=== PATIENT | female | born 1980 | race Caucasian/White ===

== ENCOUNTER 2020-05-08 17:36 | Emergency (ER) | payer OTHER, BC, SELFPAY ==
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
[2020-05-08 17:44] VITALS: BP 167/77; PULSE 62; RESP 16; TEMP 36.4; O2SAT 100
[2020-05-08] MEDS: KETOROLAC (*BKC) 60 MG/2 ML VIAL IM (18:55)
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
== END 2020-05-08 19:35 | disposition home or self-care (01) ==
PROVIDERS: Emergency Provider General Practice
DX: S16.1XXA Strain of muscle, fascia and tendon at neck level, initial encounter (principal); S39.012A Strain of muscle, fascia and tendon of lower back, initial encounter; V49.40XA Driver injured in collision with unspecified motor vehicles in traffic accident, initial encounter
CPT/HCPCS: 72125; 96372; 99284; J1885

== ENCOUNTER 2025-05-11 14:06 | Emergency (ER) | payer BC, SELFPAY ==
--- NOTE | ~2025-05-11 | XR_ITS ---
EXAMINATION: XR ankle LT min 3V DATE: 05/11/2025 16:28 INDICATION: Left ankle injury TECHNIQUE: Anteroposterior, mortise and lateral views of the left ankle were obtained. COMPARISON: None. FINDINGS: Minimal distraction of a small avulsion fracture fragment at the distal tip of the lateral malleolus with moderate overlying soft tissue swelling. No other fractures identified. Alignment is otherwise normal. Joint spaces are normal.. Small Achilles calcaneal spur. No evident ankle joint effusion. IMPRESSION: 1. Minimal distraction of a small avulsion fracture fragment at the distal tip at the lateral malleolus. Reviewed, dictated and finalized at location A.
[2025-05-11 14:09] VITALS: BP 145/93; PULSE 89; RESP 18; TEMP 36.9; O2SAT 98
--- OUTSIDE RECORDS SUMMARY | 2025-05-11 14:09 | XMS_ITS | Encounter Summary ---
Author Organization [facility] Health Address [address] [facility] [place] [address] Care Team Providers Care Binitrotoluene Operator Name Role Phone Crystal Branham Pascual SECURITY GUARD-CENTRAL OFFICE OPERATOR SUPERVISOR Primary Care Provider Reason for Visit * Reason Onset Date Comments Reschedule Appointment 05/08/2024 Encounter Details Date Type Department Care Team (Late st Contact Info) Description 05/08/2024 Telephone [facility] - PUBLIC HEALTH DIETITIAN [address] [facility] [address] [place] [address] Mali Balderas MD [address] [place] [address] Reschedule Appointment Social History Tobacco Use Types Packs/Day Years Used Date Smoking Tobacco: Former Cigarettes Q uit: 07/10/2022 Smokeless Tobacco: Never Alcohol Use Standard Drinks/Week Comments Yes 0 (1 standard drink = 0.6 oz pur e alcohol) weekends AUDIT-C Answer Date Recorded Q1: How often do you have a drink containing alc ohol? 2-4 times a month 10/16/2022 Q2: How many drinks containi ng alcohol do you have on a typical day when you are drinking? 1 or 2 10/16/2022 Q3: How often do you have si x or more drinks on one occasion? Never 10/16/2022 Comments No Sex and Gender Information Value Date Recorded Sex Assigned at Not on file Legal Sex Female 11:28 AM CDT Gender Identity Not on file Sexual Orientation Not on file documented as of this encounter Functional Status * Is person deaf or have serious hearing difficulty? Answer Date of Assessment Author No 01/17/2024 9:14 AM CDT Tasha Guardado RN * Is person blind or have serious difficulty seeing? Answer Date of Assessment Author No 01/17/2024 9:14 AM CDT Tasha Guardado RN * Does person have serious difficulty walking/climbing stairs? Answer Date of Assessment Author No 01/17/2024 9:14 AM CDT Tasha Guardado RN * Does person have difficulty dressing/bathing? Answer Date of Assessment Author No 01/17/2024 9:14 AM CDT Tasha Guardado RN * Does person have difficulty doing errands alone? Answer Date of Assessment Author No 01/17/2024 9:14 AM CDT Tasha Guardado RN documented as of this encounter Mental Status * Does person have difficulty concentrating/remembering/making decisions? Answer Entry Date Author No 01/17/2024 9:14 AM CDT Tasha Guardado RN documented in this encounter Miscellaneous Notes * Telephone Encounter - Rosario Johnson - 05/08/2024 2:25 PM CDT Pt called stating she needs to change her appts on 05/18. documented in this encounter Plan of Treatment Upcoming Encounters Date Type Department Care Team (Late st Contact Info) Description 05/14/2025 9:30 AM CDT Hospital Encounter [facility] [address] [place] [address] Stefany Mendoza MD [address] [facility] [address] [place] [phone] 05/14/2025 10:00 AM CDT Office Visit [facility] - General Surgery [address] [place] [address] Stefany Mendoza MD [address] [facility] [address] [place] [address] documented as of this encounter Goals Goal Patient Goal Type Associated Problems Recent Progress Patient-Stated? Author Medication Management General On track( 023 10:22 AM CDT) Jagruti Crowe, RN Note: Expected end date: Ongoing Interventions: Take all medications as prescribed Let your doctor know right away about any changes in your medications Make sure to request a refill of your medication at least one week prior to your last dose documented as of this encounter Visit Diagnoses Not on filedocumented in this encounter Care Teams Binitrotoluene Operator Relationship Specialty Start Date End Date Crystal Branham, SECURITY GUARD-CENTRAL OFFICE OPERATOR SUPERVISOR [facility] [place] [address] PCP - General Nurse Practitioner 02/02/24 documented as of this encounter
--- OUTSIDE RECORDS SUMMARY | 2025-05-11 14:09 | XMS_ITS | Encounter Summary ---
Author Organization [facility] Health Address [address] [facility] [address] Care Team Providers Care Gaggerman Name Role Phone Enrique Reyes MD Primary Care Provider [phone] Crystal Branham APRN-SQL DEVELOPER DBA Primary Care Provider Encounter Details Date Type Department Care Team (Late st Contact Info) Description 03/25/2023 Telephone [facility] - Centralized Scheduling [address] [place] [address] Elsa Gardner MD [address] [place] [address] Social History Tobacco Use Types Packs/Day Years Used Date Smoking Tobacco: Former Cigarettes Q uit: 07/10/2022 Smokeless Tobacco: Never Comments:1- 2 cigarettes per day Alcohol Use Standard Drinks/Week Comments Yes 0 [...] difficulty? Answer Date of Assessment Author No 04/10/2022 12:39 PM CDT Domitila Richmond RN * Is person blind or have serious difficulty seeing? Answer Date of Assessment Author No 04/10/2022 12:39 PM CDT Domitila Richmond RN * Does person have serious difficulty walking/climbing stairs? Answer Date of Assessment Author No 04/10/2022 12:39 PM CDT Domitila Richmond RN * Does person have difficulty dressing/bathing? Answer Date of Assessment Author No 04/10/2022 12:39 PM CDT Domitila Richmond RN * Does person have difficulty doing errands alone? Answer Date of Assessment Author No 04/10/2022 12:39 PM CDT Domitila Richmond RN documented as of this encounter Mental Status * Does person have difficulty concentrating/remembering/making decisions? Answer Entry Date Author No 04/10/2022 12:39 PM CDT Domitila Richmond RN documented in this encounter Miscellaneous Notes * Telephone Encounter - Srinivas Santamaria - 03/25/2023 10:45 AM CDT Pt states she sees Shyann when she's scheduled with Dr. Gardner. Pt was bumped from 03/31/2023. Pt would like a call from the office to reschedule to see if she can be scheduled with Shyann instead. Please contact pt for the reschedule documented in this encounter Plan of Treatment Upcoming Encounters Date Type Department Care Team (Late st Contact Info) Description 05/14/2025 9:30 AM CDT Hospital Encounter [facility] [address] [place] [address] Stefany Mendoza MD [address] [facility] [address] [place] [address] 05/14/2025 10:00 AM CDT Office Visit [facility] - General Surgery [address] [place] [phone] Stefany Mendoza MD [address] [facility] [address] [place] [address] documented as of this encounter Visit Diagnoses Not on filedocumented in this encounter Care Teams Gaggerman Relationship Specialty Start Date End Date Enrique Reyes MD [address] [place] [address] [address] [place] [id number] PCP - General 10/15/22 07/20/23 Crystal Branham, PUMP HOUSE ENGINEER-SQL DEVELOPER DBA [address] [place] [address] PCP - General Nurse Practitioner 02/02/24 documented as of this encounter
--- OUTSIDE RECORDS SUMMARY | 2025-05-11 14:09 | XMS_ITS | Encounter Summary ---
Author Organization [facility] Address [address] [place] [address] Phone Care Team Providers Care Tool Die Maker Name Role Phone Crystal Branham APRN, CNP Primary Care Provider + Jose Manuel Hannon MD Unavailable Encounter Details Date Type Department Care Team (Late st Contact Info) Description 08/21/2022 Telephone [facility] [address] [address] Jose Manuel Hannon MD [facility] [address] [address] Social History Tobacco Use Types Packs/Day Years Used Date Smoking Tobacco: Every Day Cigarettes Smokeless Tobacco: Never Alcohol Use Standard Drinks/Week Comments Yes 6 (1 standard drink = 0.6 oz pur e alcohol) PHQ-2 Answer Date Recorded Total Score - Questions 1-9 0 09/0 04/2022 Comments Unknown Sex and Gender Information Value Date Recorded Sex Assigned at Not on file Legal Sex Female 1:21 PM CDT Gender Identity Not on file Sexual Orientation Not on file COVID-19 Exposure Response Date Recorded In the last 10 days, have yo u been in contact with someone who was confirmed or suspected to have Coronavirus/COVID-19? No / Unsure 08/21/2022 11:27 AM CRUSHER FEEDER documented as of this encounter Miscellaneous Notes * Telephone Encounter - Jose Manuel Hannon MD - 08/21/2022 2:18 PM CST done HER FEEDER * Telephone Encounter - VianneymilkaalondraErum - 08/21/2022 2:09 PM CST PT STOPPED BY CHECKOUT AND MENTIONED ABOUT A MAMMOGRAM AND ULTRASOUND THAT SHE WANTS TO HAVE DONE AT [facility].. PLEASE PLACE ORDERS AND I WILL FAX OVER TO [facility]. HER FEEDER documented in this encounter Plan of Treatment Upcoming Encounters Date Type Department Care Team (Late st Contact Info) Description 06/14/2025 8:30 AM CRUSHER FEEDER Office Visit [facility] [address] [address] Jose Manuel Hannon MD [address] [facility] [address] [id number] 06/14/2025 8:45 AM CRUSHER FEEDER Clinical Support [facility] [address] [address] Nurse, Cc [facility] documented as of this encounter Visit Diagnoses Not on filedocumented in this encounter Additional Health Concerns Infection Onset Date Last Indicated Resolved Time C. difficile Rule-Out 01/07/2024 01/10/20242023 2:04 PM CDT documented as of this encounter Care Teams Tool Die Maker Relationship Specialty Start Date End Date Crystal Branham, CODE ENFORCEMENT INSPECTOR, SUPERVISOR [employer]ARD [address] [place] [address] PCP - General Family Medicine 03/24/22 Jose Manuel Hannno MD [address] [place] [address] Consulting Physician Oncology 03/24/22 documented as of this encounter
--- OUTSIDE RECORDS SUMMARY | 2025-05-11 14:09 | XMS_ITS | Encounter Summary ---
Author Organization [facility] Health Address [address] [facility] [place] [address] Care Team Providers Care Psychologists Name Role Phone Crystal Branham BRANCH SERVICE REPRESENTATIVE-BUSINESS SERVICES ASSOCIATE Primary Care Provider Reason for Referral * Radiology Services (Routine) - Authorized Specialty Diagnoses / Procedures Referred By Arlin t Referred To Contact Mammography Diagnoses Malignant neoplasm of upper-outer quadrant of left breast in female, estrogen receptor positive (HCC) Mass of left chest wall Procedures US BREAST LEFT LTD (Diagnostic , most commonly ordered) Stefany Mendoza MD [address] [facility] [address] [place] [address] Phone: tel: fax: [facility] [address] [place] [address] Phone: tel: fax: Referral ID Status Reason Start Date Expiration Date V isits Requested Visits Authorized [id number] Authorized 05/10/2025 05/10/2026 1 1 Encounter Details Date Type Department Care Team (Late st Contact Info) Description 05/10/2025 Orders Only [facility] - General Surgery [address] [place] [phone] Jessica Colbert RN Malignant neoplasm of upper-outer quadrant of left breast in female, estrogen receptor positive (HCC) ; Mass of left chest wall Social History Tobacco Use Types Packs/Day Years Used Date Smoking Tobacco: Former Cigarettes Q uit: 07/10/2022 Smokeless Tobacco: Never Alcohol Use Standard Drinks/Week Comments Yes 0 (1 standard drink = 0.6 oz pur e alcohol) occassionaly AUDIT-C Answer Date Recorded Q1: How often do you have a drink containing alc ohol? 2-4 times a month 10/16/2022 Q2: How many drinks containi ng alcohol do you have on a typical day when you are drinking? 1 or 2 10/16/2022 Q3: How often do you have si x or more drinks on one occasion? Never 10/16/2022 PHQ-2 Answer Date Recorded Patient Health Questionnaire-2 Score 0 08/24/2024 Comments No Sex and Gender Information Value Date Recorded Sex Assigned at Not on file Legal Sex Female 11:28 AM CDT Gender Identity Not on file Sexual Orientation Not on file documented as of this encounter Functional Status * Is person deaf or have serious hearing difficulty? Answer Date of Assessment Author No 11/29/2024 1:32 PM URIT Adelaide Alex RN * Is person blind or have serious difficulty seeing? Answer Date of Assessment Author No 11/29/2024 1:32 PM URIT Adelaide Alex RN * Does person have serious difficulty walking/climbing stairs? Answer Date of Assessment Author No 11/29/2024 1:32 PM URIT Adelaide Alex RN * Does person have difficulty dressing/bathing? Answer Date of Assessment Author No 11/29/2024 1:32 PM Adelaide Chadwick RN * Does person have difficulty doing errands alone? Answer Date of Assessment Author No 11/29/2024 1:32 PM Adelaide Chadwick RN documented as of this encounter Mental Status * Does person have difficulty concentrating/remembering/making decisions? Answer Entry Date Author No 11/29/2024 1:32 PM CDT Adelaide Alex, GERA documented in this encounter Plan of Treatment Upcoming Encounters Date Type Department Care Team (Late st Contact Info) Description 05/14/2025 9:30 AM CDT Hospital Encounter [facility] [address] [place] [address] Stefany Mendoza MD [address] [facility] [address] [place] [phone] 05/14/2025 10:00 AM CDT Office Visit [facility] - General Surgery [address] [place] [phone] Stefany Mendoza MD [address] [facility] [address] [place] [address] Scheduled Orders Name Type Priority Associated Diagnoses Orde r Schedule US BREAST LEFT LTD (Diagnostic , most commonly ordered) Imaging Routine Malignant neoplasm of upper-outer quadrant of left breast in female, estrogen receptor positive (HCC) Mass of left chest wall 1 Occurrences starting 05/10/2025 until 05/10/2026 documented as of this encounter Goals Goal Patient Goal Type Associated Problems Recent Progress Patient-Stated? Author Medication Management General On track( 023 10:22 AM CDT) Jagruti Crowe RN Note: Expected end date: Ongoing Interventions: Take all medications as prescribed Let your doctor know right away about any changes in your medications Make sure to request a refill of your medication at least one week prior to your last dose documented as of this encounter Visit Diagnoses Diagnosis Malignant neoplasm of upper-outer quadrant of left breast in female, estrogen receptor positive (HCC)- Primary Mass of left chest wall documented in this encounter Care Teams Psychologists Relationship Specialty Start Date End Date Crystal Branham, BALA-BUSINESS SERVICES ASSOCIATE [address] [place] [address] PCP - General Nurse Practitioner 02/02/24 documented as of this encounter
--- OUTSIDE RECORDS SUMMARY | 2025-05-11 14:09 | XMS_ITS | Clinical Summary ---
Author Organization [facility] Address [address] [place] [address] Care Team Providers Care Brake Lining Curer Name Role Phone Josie Singh MD Unavailable [phone] Social History Tobacco Use Types Packs/Day Years Used Date Smoking Tobacco: Never Assessed Personal Safety Answer Date Recorded Getting School Help Needed Not on file 10/23 Comments Unknown Sex and Gender Information Value Date Recorded Sex Assigned at Not on file Legal Sex Female 8:50 AM CDT Gender Identity Not on file Sexual Orientation Not on file Plan of Treatment Not on file Care Teams Brake Lining Curer Relationship Specialty Start Date End Date Josie Singh MD Obstetrics and Gynecology 02/24/22
--- OUTSIDE RECORDS SUMMARY | 2025-05-11 14:09 | XMS_ITS | Clinical Summary ---
Author Organization [facility] Wallstr Address [address] [place] [address] Care Team Providers Care Prescription Clerk Lenses Name Role Phone Crystal Branham HAND BUFFING WHEEL FORMER-DRUM STENCILER Primary Care Provider Source Comments [facility],non-owned Affiliates and Associated Physician Practices is amultiple site organization consisting of ambulatory clinics and hospital sitesin [place], [place], [place] and [place]. This disclosure is being madepursuant to the Care Everywhere program and may not contain all information available regarding this patient. Last updated 18.[facility] Wallstr Allergies Active Allergy Reactions Criticality Noted Date Comments Chlorhexidine Rash,Itching Medium 04/12/2022 Chlora Prep Naproxen Other Low 07/06/2018 I prefer not to take it, I get severe heartburn Povidone Iodine Rash Medium 03/16/2022 Medications * Be aware that medications may not be up to date on this document. Alwaysverify current medications with the patient. Cyanocobalamin (B-12 Compliance Injection) 1000 MCG/ML Inject 1,000 mcg subcutaneously every 30 days 12/17/19 24 Active anastrozole (Arimidex) 1 MG tablet Take 1 (one) tablet by mouth once daily 11/29/19 24 Active lisinopril (Prinivil; Zestril) 20 MG tablet Take 1 (one) tablet by mouth once daily 07/25/20 24 Active polyethylene glycol (Golytely) solution Drink half of prep solution at 5pm the night before colonoscopy. Finish the prep at 4am the day of test. 4000 mL 11/17/19 25 Active losartan (Cozaar) 50 MG tablet Take 1 (one) tablet by mouth once daily 09/07/19 25 Active venlafaxine XR 24hr (Effexor XR) 37.5 MG capsule Take 1 (one) capsule by mouth once daily 04/27/20 24 Active pantoprazole EC (Protonix) 40 MG tabletIndicati ons:Heartburn, Esophagitis Take 1 (one) tablet by mouth 2 times daily 180 tablet 3 05/04/20 25 026 Active pantoprazole EC (Protonix) 40 MG tabletIndicati ons:Heartburn Take 1 (one) tablet by mouth 2 times daily 180 tablet 3 03/08/20 24 025 Discontin ued(Reord er) Active Problems Problem Noted Date Diagnosed Date Colon polyps 10/07/2023 Dysphagia 05/26/2023 Monoallelic mutation of CHEK2 gene in female pat ient 05/26/2023 Vitamin D deficiency 12/14/2022 02/11/2023 Anxiety 04/07/2022 Primary hypertension 04/07/2022 Primary insomnia 04/07/2022 Former smoker 04/07/2022 03/10/2023 Malignant neoplasm of upper- outer quadrant of left breast in female, estrogen receptor positive 03/19/2022 Cancer Staging:Clinical stage from 03/16/2022:Stage IIA(cT2, cN1(f), cM0, G2, ER+, OK+, HER2: Equivocal) - Signed by Stefany Mendoza MD on 03/19/2022 Pathologic stage from 10/16/2022:No Stage Recommended(ypT2, pN2a, cM0, G2, ER+, OK+, HER2-) - Signed by Stefany Mendoza MD on 11/11/2022 Encounters Date Type Department Care Team Description 05/10/2025 Orders Only [facility] - General Surgery [address] [place] [address] Jessica Colbert, RN Malignant neoplasm of upper-outer quadrant of left breast in female, estrogen receptor positive (HCC) ; Mass of left chest wall 05/04/2025 Refill [facility] - [address], [place] [address] Ngoc Orr, LAW RESEARCHER REFILL from Last 3 Months Family History Medical History Relation Name Comments Cancer - Stomach Maternal Grandmother heber rine Cancer - Stomach Maternal Great-Grandmother Cancer - Stomach Maternal Uncle Relation Name Status Comments Maternal Grandmother Maternal Great-Grandmother Alive Maternal Uncle Alive Social History Tobacco Use Types Packs/Day Years Used Date Smoking Tobacco: Former Cigarettes Q uit: 07/10/2022 Smokeless Tobacco: Never Tobacco Cessation:Counseling Given: No Alcohol Use Standard Drinks/Week Comments Yes 0 [...] on file Sexual Orientation Not on file Last Filed Vital Signs Vital Sign Reading Time Taken Comments Blood Pressure 181/104 11/29/2024 1:45 PM CDT Pulse 60 11/29/2024 1:45 PM CDT Temperature 36.1 C (97 F) 11/29/2024 1:14 PM CDT Respiratory Rate 19 11/29/2024 1:45 PM CDT Oxygen Saturation 100% 11/29/2024 1:45 PM CDT Inhaled Oxygen Concentration 21% 10:45 AM CDT Weight 95.6 kg (210 lb 12.8 oz) 025 11:20 AM CDT Height 172.7 cm (5' 8) 11/29/2024 11:2 0 AM CDT Body Mass Index 32.05 11/29/2024 11:20 AM CDT Plan of Treatment Upcoming Encounters Date Type Department Care Team (Late st Contact Info) Description 05/14/2025 9:30 AM CDT Hospital Encounter [facility] [address] [place] [address] Stefany Mendoza MD [address] [facility] [facility] [address] [place] [address] 05/14/2025 10:00 AM CDT Office Visit [facility] - General Surgery [address] [place] [id number] Stefany Mendoza MD [address] [facility] [address] [place] [address] Health Maintenance Due Date Last Done Comments COLOGUARD (AGES 45-75) - COLON CA SCREENING 1980 CT COLONOGRAPHY - COLON CA SCREENING 1980 FIT - COLON CA SCREENING 1980 FLEX SIG - COLON CA SCREENING 1978 HIV SCREENING 1993 HEPATITIS C SCREENING 09/27/1996 DTAP/TDAP/TD VACCINES (1 - Tdap) 1997 HEPATITIS B VACCINE (1 of 3 - 19+ 3-dose series) 1997 SCREENING FOR DIABETES 04/01/2025 04/01/2022 COVID-19 VACCINE (2 - 2024- season) 2025 10/14/2020 INFLUENZA VACCINE (#1) 2025 MAMMOGRAM 09/25/2026 09/25/2024, 02/0 03/2023, 03/10/2022, Additional history exists ZOSTER VACCINE (1 of 2) 2028 LIPID TESTING 03/10/2029 03/10/2024, 04/08/2022 PAP with HPV 04/06/2029 04/06/2024, 03/10, 12/14/2022, Additional history exists COLON MONITORING 11/29/2034 11/29/2024, , 10/06/2023, Additional history exists COLONOSCOPY - COLON CA SCREENING 11/29/2034 11/29/2024, 11/29/2024, 10/06/2023, Additional history exists Colorectal Cancer Screening 11/29/2034 DEPRESSION SCREENING Completed 08/24/2024 HIB VACCINE Aged Out No longer eligi ble based on patient's age to complete this topic HPV VACCINE Aged Out No longer eligi ble based on patient's age to complete this topic MENINGOCOCCAL (Group B) VACCINE SHARED DECISION-MAKING Aged Out No longer eligible based on patient's age to complete this topic MENINGOCOCCAL GROUPS A/C/Y/W VACCINE Aged Out No longer eligible based on patient's age to complete this topic PNEUMOCOCCAL VACCINE Aged Out No long er eligible based on patient's age to complete this topic Goals Goal Patient Goal Type Associated Problems [...] one week prior to your last dose Medical Devices Implanted Type Area Train Control Technician Device Identifier Shelf Expiration Date Model / Serial / Lot Port Implinfn Powerport Isp Mri Argd - [id number] Implanted:Qty: 1 on 04/10/2022 by Stefany Mendoza MD at [facility] N/A: Chest Bard Peripheral Vascular 07/08/2022 [id number] / [id number] / [id number] Mtrx Tissue Aldrm Algrf Prfr Implanted:Qty: 1 on 10/16/2022 by Elsa Gardner MD at [facility] Right: Breast Lifecell Kate 05/08/2024 [id number] / / [id number] Mtrx Tissue Aldrm Algrf Prfr Implanted:Qty: 1 on 10/16/2022 by Elsa Gardner MD at [facility] Left: Breast Lif[employer]ell Kate 05/08/2024 [id number] / / [id number] Natrelle 133s Tissue Explander Implanted:Qty: 1 on 10/16/2022 by Elsa Gardner MD at [facility] Right: Breast 03/13/2027 133S-MX-12- T / [id number] / Natrelle 133s Tissue Fire Department Marine Engineer Implanted:Qty: 1 on 10/16/2022 by Elsa Gardner MD at [facility] Left: Breast 06/10/2027 133S-MX-12- T / [id number] / Natrelle Inspira Cohesive Breast Implant Smooth Round Full Profile Implanted:Qty: 1 on 08/20/2023 by Elsa Gardner MD at [facility] Left: Breast [employer] 07/29/[address] [facility]-365 / [id number] / Natrelle Inspira Cohesive Breast Implant Smooth Round Full Profile Implanted:Qty: 1 on 08/20/2023 by Elsa Gardner MD at [facility] Right: Breast 12/06/[address] [facility]-345 / [id number] / Explanted Type Area Train Control Technician Device Identifier Shelf Expiration Date Model / Serial / Lot Kit Fld Trnsf 122cm Natrelle Unv 2w Ck Explanted:Qty: 1 on 08/20/2023 by Elsa Gardner MD at [facility] Breast [employer] [id number] / / Procedures Procedure Name Priority Date/Time Associated Diagnosis Comments ENDOSCOPY, COLON, DIAGNOSTIC Routine 11/29/2024 11:41 AM CDT MAMMO BILAT DIAGNOSTIC W SHASHI Routine 09/25/2024 11:38 AM SENIOR SOFTWARE ARCHITECT S/P breast reconstruction, bilateral History of left breast cancer Malignant neoplasm of upper-outer quadrant of left breast in female, estrogen receptor positive S/P bilateral mastectomy Silicone breast implant in situ HPV DETECTION HIGH RISK TED Routine 04/06/2024 11:42 AM CDT Well woman exam with routine gynecological exam LIPID PROFILE Routine 04/08/2022 3:24 PM CDT Primary hypertension Body mass index (BMI) of 22.0-22.9 in adult COMPREHENSIVE METABOLIC PANEL Routine 04/01/2022 12:22 PM CDT Malignant neoplasm of upper-outer quadrant of left breast in female, estrogen receptor positive from Last 3 Months or Most Recently Relevant to Health Maintenance Results * ENDOSCOPY, COLON, DIAGNOSTIC (11/29/2024 11:41 AM CDT) Report Endoscopy POC Endoscopy Department Report _ Patient Name: Jay Chaudhari Procedure Date: 11/29/2024 11:41 AM Date of : 1980 Classification: Outpatient Gender: Female Ethnicity: Not or Race: White _ Providers: Rikki Pack MD, James Leyva (Fellow) Referring MD: Procedure: Colonoscopy Indications: High risk colon cancer surveillance: Personal history of colonic polyps Medications: Monitored Anesthesia Care Patient Profile: This is a 44 year old female. Description of Procedure: After I obtained informed consent, the scope was passed under direct vision. Throughout the procedure, the patient's blood pressure, pulse, and oxygen saturations were monitored continuously. The Colonoscope was introduced through the anus and advanced to the cecum, identified by appendiceal orifice and ileocecal valve. The colonoscopy was performed without difficulty. The patient tolerated the procedure well. Scope insertion time was 5 minutes. Scope withdrawal time was 21 minutes. The quality of the bowel preparation was evaluated using the BBPS (Callery Bowel Preparation Scale) with scores of: Right Colon = 3 (entire mucosa seen well with no residual staining, small fragments of stool or opaque liquid), Transverse Colon = 3 (entire mucosa seen well with no residual staining, small fragments of stool or opaque liquid) and Left Colon = 3 (entire mucosa seen well with no residual staining, small fragments of stool or opaque liquid). The total BBPS score equals 9. To enhance insepction, Endocuff distal attachment was used. GI-Genius ([employer]) was used to assist in polyp detection. Findings: Skin tags were found on perianal exam. At 35 cm a small post polypectomy scar was found in the sigmoid colon. The scar tissue was healthy in appearance. There was no evidence of the previous polyp. A tattoo was seen in the sigmoid colon just distal to the colinic scar. The tattoo site appeared normal. Non-bleeding internal hemorrhoids were found during retroflexion. The hemorrhoids were mild. The colon (entire examined portion) appeared normal otherwise. Estimated Blood Loss: Estimated blood loss: none. Complications: No immediate complications. Impression: - Perianal skin tags found on perianal exam. - Post-polypectomy scar in the sigmoid colon. Healthy looking with no residual/recurren t polyp tissue noted. - A tattoo was seen in the sigmoid colon, distal to the scar. The tattoo site appeared normal. - Non-bleeding internal hemorrhoids. - The entire examined colon is normal. - No specimens collected. Recommendation: - Patient has a contact number available for emergencies. The signs and symptoms of potential delayed complications were discussed with the patient. Return to normal activities tomorrow. Written discharge instructions were provided to the patient. - High fiber diet. - Resume previous diet. - Repeat colonoscopy in 3 years for surveillance given patient's risk. Attending Participation: I was present and participated during the entire procedure, including non-douglas portions. Procedure Code(s): --- Professional --- G0105, Colorectal cancer screening; colonoscopy on individual at high risk Diagnosis Code(s): --- Professional --- Z86.010, Personal history of colonic polyps K64.8, Other hemorrhoids K64.4, Residual hemorrhoidal skin tags CPT copyright 2021 [employer] [place] [employer]. All rights reserved. The codes documented in this report are preliminary and upon upholstery mechanic review may be revised to meet current compliance requirements. Rikki Pack MD 11/29/2024 1:28:13 PM This report has been signed electronically. Note Initiated On: 11/29/2024 11:41 AM Number of Addenda: 0 [address] [place] [address] [facility] 11/29/2024 11:4 1 AM CDT us Rikki Pack MD GI PROCEDURE ORDERABLES Edited R esult - Final [facility] * Mammo Bilat Diagnostic W Shashi (09/25/2024 11:38 AM SENIOR SOFTWARE ARCHITECT) Anatomical Region Laterality Modality Breast Bilateral Mammography 09/25/2024 10:3 5 AM SENIOR SOFTWARE ARCHITECT Impressions 09/25/2024 12:43 PM SENIOR SOFTWARE ARCHITECT IMPRESSION: 1. No bilateral mammographic or lateral targeted breast sonographic evidence of malignancy, with attention to the areas of clinical concern. 2. Patient's bilateral palpable lumps in the reconstructed breasts represent benign oil cysts/fat necrosis. RECOMMENDATION: Patient will follow back with her plastic surgeon. Dr. Kuo discussed the examination findings and recommendations with the patient at the time of the examination. Patient will also receive the exam results by lay letter. OVERALL ASSESSMENT: BI-RADS CATEGORY 2: BENIGN. > Interpreting Provider: Ashley Kuo MD, FACR on 09/25/2024 12:43 PM Narrative 09/25/2024 12:43 PM SENIOR SOFTWARE ARCHITECT EXAMINATIONS: 1. BILATERAL DIGITAL DIAGNOSTIC MAMMOGRAM AND BREAST TOMOSYNTHESIS AND 2. LIMITED BILATERAL BREAST ULTRASOUND (COMBINED REPORT) LOCATION: [facility] EXAM DATE: 09/25/2024 HISTORY: This is a 43-year-old female, status post bilateral mastectomies and breast reconstruction in 2022 for left-sided breast cancer. On 08/20/2023, patient had removal of bilateral breast tissue expanders and placement of bilateral silicone gel implants. Patient reports bilateral fat injections within the bilateral breasts in March 2024. Patient now feels lumps the medial and the lateral left breast as well as within the medial right breast. Diagnostic workup is performed for further evaluation of this palpable lumps. COMPARISON: Diagnostic mammogram and ultrasound 09/16/2022, prior to bilateral mastectomies. LIMITED BILATERAL BREAST ULTRASOUND: Right side: Targeted ultrasound performed with attention to the 3:00 region were patient feels a lump. Dr. Kuo also scanned the patient. Left side: Targeted ultrasound performed the left breast with attention to the 4:00 and 9:00 regions were patient feels lumps. Dr. Kuo also scanned the patient. FINDINGS: Right side: Breast implant noted. At 3:00, 8 cm from and expected location of the nipple and corresponding with patient's palpable lump, is a 1.1 x 1.0 x 0.6 cm oval circumscribed isoechoic mass with no blood flow. This is directly adjacent to the implant and likely represents fat necrosis. Left side: Breast implant noted. At 4:00, 4 cm from the nipple and corresponding with her palpable lump is a 2.2 x 0.9 x 1.9 cm oval circumscribed minimally hypoechoic mass, directly adjacent to the implant. There is no blood flow. This likely represents fat necrosis. At 9:00, 8 cm from the nipple and corresponding with her palpable lump is a 2.8 x 2.8 x 0.9 cm oval circumscribed hypoechoic mass, directly adjacent to the implant. No blood flow noted to this. This likely represents fat necrosis. Mammogram performed to further evaluation the palpable lumps to see if these represent fat necrosis. MAMMOGRAM: TECHNIQUE: Diagnostic bilateral mammography was performed. Tomosynthesis (3-D) and reconstructed synthetic 2-D images acquired. Bilateral CC and MLO implant displaced views as well as exaggerated left CC views obtained. A total of 7 images were obtained. Transpara AI was utilized in the interpretation of this exam. BREAST COMPOSITION: Category A: The breasts are almost entirely fatty. FINDINGS: Right side: Just deep to the triangular marker were patient feels a lump is a 1.0 cm oval fat density mass, representing benign fat necrosis/oral cysts and corresponding with the mass on ultrasound. This is just superficial to the implant. Left side: Just deep to the triangular marker laterally and corresponding with her palpable lump is a 2.1 cm oval fat density mass, representing benign fat necrosis and corresponding with the mass on ultrasound. This is just superficial to the implant. In the medial breast, just adjacent to the implant and just deep to the triangle are marker is a oval 2.5 cm fat density mass, representing benign fat necrosis. This corresponds with the mass on ultrasound in the 9:00 region. Donna Cardenas PA-C MAMMO ORDERABLES Final Result * (ABNORMAL) HPV DETECTION HIGH RISK TED (04/06/2024 11:42 AM CDT) Pathologist [facility] High Risk Human Papilloma Result Detected( A) Not detected 04/13/2024 7:20 AM CDT [facility] High Risk Human Papilloma Interp 04/13/2024 7:20 AM CDT [facility] Comment:High Risk Human Blair lloma Virus - Detected Pathology/Cytolo gy MISCELLANEOUS SAMPLES / Unknown 04/06/2024 11:42 AM CDT 04/07/2024 12:17 PM CDT Narrative [facility] - 04/13/2024 7:20 AM CDT Nucleic acid isolated from the specimen was analyzed with a nucleic acid amplification test (FDA approved Gen-Probe HPV Assay) to detect high risk human papilloma virus (Types: 16, 18, 31, 33, 35, 39, 45, 51, 52, 56, 58, 59, 66, and 68). The reference range is Not Detected. Comment: These test results should not be used as the sole basis for clinical assessment and treatment of patients. These results should always be correlated with other available data (cytology, histology, and clinical information). us Mali Balderas MD LAB - MICROBIOLOGY O RDERABLES Final Result Performing Organization Address City/State/[facility] Co de Phone Number [facility] [address] [phone] * (ABNORMAL) LIPID PROFILE (04/08/2022 3:24 PM CDT) [facility] Cholesterol Total 198 <200 mg/dL 04/08/2022 4:25 PM CDT [facility] HDL 66 >40 mg/dL 04/08/2022 4:25 PM CDT [facility] Comment: ATP III Classification of HDL Cholesterol: <40 mg/dL: Considered a major risk factor. >60 mg/dL: Considered a negative risk factor. LDL Calculated 107(H) <100 mg/dL 04/08/2022 4:25 PM [facility] Comment: ATP III Classification of LDL Cholesterol: <100 mg/dL: Optimal 100 - 129 mg/dL: Near Optimal/Above Optimal 130 - 159 mg/dL: Borderline High 160 - 189 mg/dL: High >190 mg/dL: Very High Triglycerides 123 <150 mg/dL 04/08/2022 4:25 PM T [facility] Comment: ATP III Classification of Triglycerides: <150 mg/dL: Normal 150 - 199 mg/dL: Borderline High 200 - 400 mg/dL: High >500 mg/dL: Very High Blood BLOOD SPECIMEN / Unknown Lab Venipuncture / Unknown 04/08/2022 3:24 PM CDT 04/08/2022 3:55 PM CDT Crystal Branham HAND BUFFING WHEEL FORMER-DRUM STENCILER LAB - CHEMISTRY ORDERAB LES Final Result [facility] [address] [place] [address], [facility] [phone] * (ABNORMAL) COMPREHENSIVE METABOLIC PANEL (04/01/2022 12:22 PM CDT) BUN 22 7 - 26 mg/dL 04/01/2022 1:56 PM [facility] Creatinine 0.66 0.56 - 0.96 mg/dL 04/01/2022 1:56 PM [facility] Sodium 139 136 - 145 mmol/L 04/01/2022 1:56 PM [facility] Potassium 4.1 3.5 - 4.5 mmol/L 04/01/2022 1:56 PM [facility] Chloride 104 98 - 107 mmol/L 04/01/2022 1:56 PM [facility] CO2 25 22 - 29 mmol/L 04/01/2022 1:56 PM [facility] Glucose 88 70 - 115 mg/dL 04/01/2022 1:56 PM [facility] Calcium 10.1 8.4 - 10.2 mg/dL 04/01/2022 1:56 PM [facility] Protein Total 7.5 6.0 - 8.3 g/dL 04/01/2022 1:56 PM [facility] Albumin 4.6 3.4 - 5.0 g/dL 04/01/2022 1:56 PM [facility] Bilirubin Total 0.8 0.2 - 1.2 mg/dL 04/01/2022 1:56 PM [facility] Alkaline Phosphatase 47 40 - 150 U/L 04/01/2022 1:56 PM [facility] ALT 14 5 - 55 U/L 04/01/2022 1:56 PM [facility] AST 21 5 - 34 U/L 04/01/2022 1:56 PM [facility] Anion Gap 14 8 - 18 04/01/2022 1:56 PM [facility] BUN/Creatinine Ratio 33(H) 7 - 23 04/01/2022 1:56 PM [facility] Osmolality Calculated 291 270 - 300 mOsm/kg 04/01/2022 1:56 PM [facility] Albumin/Globulin Ratio 1.6 1.1 - 2.3 04/01/2022 1:56 PM [facility] eGFR by CKD-EPI >90 >=90 mL/min/1.7 3 m2 04/01/2022 1:56 PM [facility] Blood BLOOD SPECIMEN / Unknown Lab Venipuncture / Unknown 04/01/2022 12:22 PM CDT 04/01/2022 1:24 PM [facility] us Elsa Gardner MD LAB - CHEMISTRY ORDERABLES Cathryn l Result [facility] [address] [place] [address], [facility] [phone] from Last 3 Months or Most Recently Relevant to Health Maintenance Insurance BRENDA BRENDA Advance Directives * Full Code (Latest Code Status on File) Date Activated Date Inactivated Comments 10/16/2022 12:52 PM 10/17/2022 11:43 AM Care Teams Prescription Clerk Lenses Relationship Specialty Start Date End Date Crystal Branham, BALA-DRUM STENCILER [address] [place] [id number] PCP - General Nurse Practitioner 02/02/24
--- OUTSIDE RECORDS SUMMARY | 2025-05-11 14:09 | XMS_ITS ---
Author Organization [facility] Address [address], [facility] [address] [place] [address] Phone Care Team Providers [employer] Supervisor Name Role Phone Crystal Branham APRN, SHERMAN Primary Care Provider + Jose Manuel Hannon MD Unavailable [phone] Active Problems Problem Noted Date Diagnosed Date Anemia due to unknown mechanism 03/16/2025 Osteopenia 03/16/2025 Iron deficiency anemia, unspecified 03/16/2025 B12 deficiency 12/14/2023 Monoallelic mutation of CHEK2 gene in female pat ient 05/26/2023 Dysphagia 05/26/2023 Vitamin D deficiency 12/14/2022 Primary insomnia 04/07/2022 Primary hypertension 04/07/2022 Current every day smoker 04/07/2022 Anxiety 04/07/2022 Malignant neoplasm of upper- outer quadrant of left breast in female, estrogen receptor positive 04/03/2022 Current Treatment and Therapy Plans BREAST - ANASTROZOLE AND abemaciclib(verzenio) - [facility]* Plan Start Date:11/08/2022 Plan Provider:Jose Manuel Hannon MD Linked Problems Malignant neoplasm of upper- outer quadrant of left breast in female, estrogen receptor positive Treatment Medications Current Day (Day 1 , Cycle 13 - Planned for 10/11/2023) Next Day (Day 1, Cycle 14 - Planned for 11/08/2023) abemaciclib (Verzenio) Tabs abemaciclib (Verzenio) 100 MG Tablet abemaciclib (Verzenio) 100 MG Tablet [facility]: Support - Monoferric* Plan Start Date:03/20/2025 Plan Provider:Jesus Alberto Foss MD Linked Problems Malignant neoplasm of upper- outer quadrant of left breast in female, estrogen receptor positiveIron deficiency anemia, unspecified iron deficiency anemia type Treatment Medications No medications scheduled. [facility]: SUPPORT - Stoboclo(DENOSUMAB)* Plan Start Date:03/23/2025 Plan Provider:Jose Manuel Hannon MD Linked Problems Malignant neoplasm of upper- outer quadrant of left breast in female, estrogen receptor positive Treatment Medications Current Day (Day 1 , Cycle 1 - Planned for 03/23/2025) Next Day (Day 1, Cycle 2 - Planned for 09/21/2025) No medications scheduled. No medications schedul ed. No medications scheduled. [facility]: Taxol weekly Post AC - 28 Day Cycle - Breast* Plan Start Date:06/02/2022 Plan Provider:Jose Manuel Hannon MD Linked Problems Malignant neoplasm of upper- outer quadrant of left breast in female, estrogen receptor positive Treatment Medications PACLitaxel (TAXOL) chemo infusion Other Current Plans SUPPORT - B12 - [facility]* Plan Start Date:12/17/2023 Plan Provider:Jose Manuel Hannon MD Linked Problems B12 deficiency Treatment Medications Current Day (Day 2 , Cycle 1 - Planned for 12/20/2023) Next Day (Day 3, Cycle 1 - Planned for 12/21/2023) No medications scheduled. No medications schedul ed. No medications scheduled. Past Treatment and Therapy Plans ONCOLOGY SECONDARY SUPPORTIVE CARE Plan Name Start Date Discontinue Date Treatment Medications Discontinue Reason Plan Provider Cycles [facility]: Gosrelin - 3 Month - Breast 3 03/16/2025 No medications scheduled. Plan Clean Up Jose Manuel Hannon MD 6 (7 of 7 cycles) started [facility]: Leuprolide (Lupron) / Triptorelin (Trelstar) - 1 Month - Breast 11/09/2022 03/12/2023 No medications scheduled. Therapy Complete Jose Manuel Hannon MD 5 (6 of 12 cycles) started ONCOLOGY SUPPORTIVE CARE Plan Name Start Date Discontinue Date Treatment Medications Discontinue Reason Plan Provider Cycles SUPPORT - HYDRATION WITH ADDITIVES + ANTIEMETICS - [facility] 2 03/16/2025 No medications scheduled. Plan Clean Up Jose Manuel Hannon MD 6 of 6 cycles started ONCOLOGY TREATMENT Plan Name Start Date Discontinue Date Treatment Medications Discontinue Reason Plan Provider Cycles [facility]: Breast Dose-Dens e AC - 14 Day Cycle 2 06/19/2022 cyclophosphamide (CYTOXAN) chemo infusionDOXOrubicin (ADRIAMYCIN) Therapy Complete Jose Manuel Hannon MD 4 of 4 cycles started Lifetime Dose Tracking * Chemical Lifetime Dose Automatic Entry Manual Entr y Doxorubicin 239.007 mg/m2 (429.6 mg) 239.007 mg/m2 (4 29.6 mg) 0 mg/m2 (0 mg) Cyclophosphamide 2,403.427 mg/m2 (4,320 mg) 2,403.427 mg/m2 (4,320 mg) 0 mg/m2 (0 mg)
--- OUTSIDE RECORDS SUMMARY | 2025-05-11 14:09 | XMS_ITS | Clinical Summary ---
Author Organization [facility] Address [address], [address] [place] [address] Phone Care Team Providers Care Car Coupler Name Role Phone Carrol Crystal MCKENNA, COAL OR ORE CONTROLLER Primary Care Provider + Jose Manuel Hannon MD Unavailable [phone] Allergies Active Allergy Reactions Criticality Noted Date Comments Chlorhexidine Rash,Itching 04/12/2022 Chlora Prep Iodine Rash 04/03/2022 Naproxen Other (see Comments) Low 07/06/2018 I prefer not to take it, I get severe heartburn I prefer not to take it, I get severe heartburn Medications ibuprofen (MOTRIN) 200 MG Tablet Take by mouth. 2 Active COLLAGEN PO Take by mouth. Act brian Acetaminophen 500 MG Capsule Take 500 mg by mouth. 4 Active abemaciclib (Verzenio) 100 MG TabletIndicatio ns:Malignant neoplasm of upper-outer quadrant of left breast in female, estrogen receptor positive Take 1 Tablet by mouth 2 times daily 56 Tablet 5 4 Active Additional Information Patient not taking.Reported on 03/16/2025 pantoprazole (PROTONIX) 40 MG Tablet Delayed Response TAKE 1 (ONE) TABLET BY MOUTH ONCE DAILY FOR 60 DAYS 4 Active Syringe/Needle, Disp, (SYRINGE 3CC/25GX5/8) 25G X 5/8 3 ML Misc Use one syringe per B12 injection 8 Each 4 Active Additional Information Patient not taking.Reported on 03/16/2025 cyanocobalamin (VITAMIN B-12) 1000 MCG/ML Solution INJECT 1000MCG BY INJECTION ROUTE EVERY 30 DAYS FOR 8 DOSES 3 mL 2 Active losartan (COZAAR) 50 MG Tablet Take 50 mg by mouth daily. Active venlafaxine (EFFEXOR-XR) 75 MG CAPSULE SR 24 HR Take 75 mg by mouth. Active amLODIPine (NORVASC) 5 MG Tablet Take 5 mg by mouth daily. Active anastrozole (ARIMIDEX) 1 MG Tablet TAKE 1 TABLET BY MOUTH EVERY DAY 90 Tablet 2 Active VITAMIN D PO Take 50 mcg by mouth. Active Active Problems Problem Noted Date Diagnosed Date [...] breast in female, estrogen receptor positive 04/03/2022 Encounters Date Type Department Care Team Description 03/23/2025 11:15 AM CDT Care Management [facility] [address] [phone] Navigator, Cc [place] Nurse Care Management (EDUCATION PREP) 03/20/2025 1:00 PM CDT Clinical Support [facility] [address] [phone] Nurse, Cc [place] Malignant neoplasm of upper-outer quadrant of left breast in female, estrogen receptor positive (HCC) (Primary Dx); Iron deficiency anemia, unspecified iron deficiency anemia type 03/20/2025 Travel 03/16/2025 8:45 AM CDT Lab [facility] [address] [phone] Lab, Cc [place] Malignant neoplasm of upper-outer quadrant of left breast in female, estrogen receptor positive (HCC); Anemia due to unknown mechanism; Osteopenia of both hips 03/16/2025 8:15 AM CDT Office Visit [facility] [address] [address] Jose Manuel Hannon MD Malignant neoplasm of upper-outer quadrant of left breast in female, estrogen receptor positive (HCC) (Primary Dx); Anemia due to unknown mechanism; Osteopenia of both hips 03/16/2025 Results Follow-Up [facility] [address] [address] Jose Manuel Hannon MD LACTATE DEHYDROGENASE (LD), IRON W/ IRON BINDING CAPACITY [place], RETICULOCYTE COUNT (RETIC), Additional followed-up results: 2 03/16/2025 Travel 03/07/2025 1:15 PM CDT Ancillary Procedure [facility] [address] [phone] Malignant neoplasm of upper-outer quadrant of left breast in female, estrogen receptor positive (HCC) 03/07/2025 Travel 02/16/2025 Refill [facility] [address] [address] Jose Manuel Hannon MD Medication Refill from Last 3 Months Immunizations Immunization Administration Dates Next Due TDAP Vaccine 04/25/2021 Family History Medical History Relation Name Comments Diabetes Father Uterine Cancer Maternal Grandmother Thyroid Disease Mother Alzheimer's Disease Paternal Grandfather Parkinsonism Paternal Grandfather Relation Name Status Comments Father Maternal Grandmother Mother Paternal Grandfather Social History Tobacco Use Types Packs/Day Years Used Date Smoking Tobacco: Former Cigarettes Q uit: 2021 Smokeless Tobacco: Never Tobacco Cessation:Counseling Given: Not Answered Alcohol Use Standard Drinks/Week Comments Yes 6 (1 standard drink = 0.6 oz pur e alcohol) PHQ-2 Answer Date Recorded Total Score - Questions 1-9 0 04/2022 Comments Unknown Sex and Gender Information Value Date Recorded Sex Assigned at Not on file Legal Sex Female 1:21 PM CDT Gender Identity Not on file Sexual Orientation Not on file Last Filed Vital Signs Vital Sign Reading Time Taken Comments Blood Pressure 138/86 03/20/2025 11:32 AM CDT Pulse 78 03/20/2025 11:32 AM CDT Temperature 36.7 C (98 F) 03/20/2025 11:32 AM CDT Respiratory Rate 18 03/20/2025 11:32 AM CDT Oxygen Saturation 98% 03/20/2025 11:32 AM CDT Inhaled Oxygen Concentration - - Weight 97.1 kg (214 lb) 03/20/2025 11:32 AM CDT Height 172.7 cm (5' 8) 03/20/2025 11:32 AM CDT Body Mass Index 32.54 03/20/2025 11:32 AM CDT Plan of Treatment Upcoming Encounters Date Type Department Care Team (Late st Contact Info) Description 06/14/2025 8:30 AM ACCOUNTING TECHNICIAN Office Visit [facility] [address] [phone] Jose Manuel Hannon MD [facility] [place] [address] [address] 06/14/2025 8:45 AM ACCOUNTING TECHNICIAN Clinical Support [facility] [address] [phone] Nurse, Cc [facility] Health Maintenance Due Date Last Done Comments Hepatitis B Immunization (1 of 3 - 19+ 3-dose series) 1997 Pneumococcal Immunization Combined (1 of 2 - PCV) 1997 SARS-COV-2 Immunization (2 - Shawn risk series) 11/11/2020 10/14/2020 Cologuard 2023 Immunochemical Fecal Occult Blood 2023 Influenza Immunization (#1) 2025 Mammogram 09/25/2025 09/25/2024, 09/09, 09/16/2022, Additional history exists Td Immunization Every 10 Years (Adults With 1 Tdap) 04/25/2031 04/25/2021 Colonoscopy 11/29/2034 11/29/2024 Colorectal Cancer Screening 11/29/2034 Respiratory Syncytial Virus (RSV) Immunization (Adult) (1 - 1-dose 75+ series) 2053 DTaP/Tdap/Td Immunization Discontinued 04/25/2021 Hepatitis C Virus (HCV) Screening Completed 03/10/2024 Discussion re Starting/Frequency of Mammograms Completed 09/25/2024, 09/16/2022 Human Papillomavirus (HPV) Immunization Aged Out No longer eligible based on patient's age to complete this topic Meningococcal Immunization (ACWY) Aged Out No longer eligible based on patient's age to complete this topic Rotavirus Immunization Aged Out No lo nger eligible based on patient's age to complete this topic Procedures Procedure Name Priority Date/Time Associated Diagnosis Comments COMPLETE BLOOD COUNT (CBC) WITH DIFF Routine 03/16/2025 8:41 AM CDT Malignant neoplasm of upper-outer quadrant of left breast in female, estrogen receptor positive (HCC) Anemia due to unknown mechanism Osteopenia of both hips CMP (COMPREHENSIVE METABOLIC PANEL) Routine 03/16/2025 8:41 AM CDT Malignant neoplasm of upper-outer quadrant of left breast in female, estrogen receptor positive (HCC) Anemia due to unknown mechanism Osteopenia of both hips FOLIC ACID (FOLATE) Routine 03/16/2025 8 :41 AM CDT Malignant neoplasm of upper-outer quadrant of left breast in female, estrogen receptor positive (HCC) Anemia due to unknown mechanism Osteopenia of both hips FERRITIN Routine 03/16/2025 8:41 AM CDT Malignant neoplasm of upper-outer quadrant of left breast in female, estrogen receptor positive (HCC) Anemia due to unknown mechanism Osteopenia of both hips RETICULOCYTE COUNT (RETIC) Routine 03/16/2025 8:41 AM CDT Malignant neoplasm of upper-outer quadrant of left breast in female, estrogen receptor positive (HCC) Anemia due to unknown mechanism Osteopenia of both hips IRON W/ IRON BINDING CAPACITY OH Routine 03/16/2025 8:41 AM CDT Malignant neoplasm of upper-outer quadrant of left breast in female, estrogen receptor positive (HCC) Anemia due to unknown mechanism Osteopenia of both hips VITAMIN B12 Routine 03/16/2025 8:41 AM CDT Malignant neoplasm of upper-outer quadrant of left breast in female, estrogen receptor positive (HCC) Anemia due to unknown mechanism Osteopenia of both hips LACTATE DEHYDROGENASE (LD) Routine 03/16/2025 8:41 AM CDT Malignant neoplasm of upper-outer quadrant of left breast in female, estrogen receptor positive (HCC) Anemia due to unknown mechanism Osteopenia of both hips HAPTOGLOBIN Routine 03/16/2025 8:41 AM CDT Malignant neoplasm of upper-outer quadrant of left breast in female, estrogen receptor positive (HCC) Anemia due to unknown mechanism Osteopenia of both hips PRAFUL BONE DENSITOMETRY AXIAL SKELETON Routine 03/07/2025 1:44 PM CDT Malignant neoplasm of upper-outer quadrant of left breast in female, estrogen receptor positive (HCC) HEPATITIS C ANTIBODY Routine 03/10/2024 11:19 AM CDT Malignant neoplasm of upper-outer quadrant of left breast in female, estrogen receptor positive (HCC) from Last 3 Months or Most Recently Relevant to Health Maintenance Results * (ABNORMAL) IRON W/ IRON BINDING CAPACITY [place] (03/16/2025 8:41 AM CDT) IRON 32(L) 50 - 212 ug/dL [facility] UIBC 424(H) 155 - 355 ug/dL [facility] TIBC 456 261 - 478 ug/dl [facility] % Saturation 7(L) 20 - 50 % [facility] 03/16/2025 8:41 AM CDT Narrative [facility] - 03/16/2025 10:25 AM CDT Release to patient->Immediate us Jose Manuel Hannon MD LAB SEND OUTS Final Result [facility] [place] [address], * VITAMIN B12 (03/16/2025 8:41 AM CDT) Vitamin B12 407 180 - 914 pg/mL [facility] Blood 03/16/2025 8:41 AM CDT [facility] - 03/16/2025 2:12 PM CDT Release to patient->Immediate Jose Manuel Hannon MD CHEMISTRY ORDERABLES Final R esult Performing Organization Address [facility] de Phone Number [facility] [place] [address], * (ABNORMAL) RETICULOCYTE COUNT (RETIC) (03/16/2025 8:41 AM CDT) Reticulocyte count 1.74(H) 0.50 - 1.70 % [facility] RET-He 28.30 28.20 - 36.60 pg [facility] Comment: RET-He is a direct assessment of incorporation of iron into erythrocyte hemoglobin. It provides an indirect measure of the iron available for new erythropoiesis over past 2-4 days. Blood 03/16/2025 8:41 AM CDT [facility] - 03/16/2025 8:50 AM CDT Release to patient->Immediate Jose Manuel Hannon MD HEMATOLOGY ORDERABLES Final Result Performing Organization Address [facility] de Phone Number [facility] [place] [address], * LACTATE DEHYDROGENASE (LD) (03/16/2025 8:41 AM CDT) LDH 185 140 - 271 U/L [facility] Blood 03/16/2025 8:41 AM CDT [facility] - 03/16/2025 9:37 AM CDT Release to patient->Immediate us Jose Manuel Hannon MD CHEMISTRY ORDERABLES Final R esult Performing Organization Address City/[facility]/ZIP Co de Phone Number [facility] [place] [address] [place] [address], * HAPTOGLOBIN (03/16/2025 8:41 AM CDT) HAPTO 139 44 - 215 mg/dL [facility] Blood 03/16/2025 8:41 AM CDT [facility] - 03/16/2025 1:27 PM CDT Release to patient->Immediate us Jose Manuel Hannon MD CHEMISTRY ORDERABLES Final R esult Performing Organization Address [facility] Co de Phone Number [facility] [place] [address] [place] [address], * FOLIC ACID (FOLATE) (03/16/2025 8:41 AM CDT) Folate 14.71 >=5.90 ng/mL [facility] Blood 03/16/2025 8:41 AM CDT [facility] - 03/16/2025 2:12 PM CDT Release to patient->Immediate IS THE PATIENT REQUIRED TO BE FASTING FOR 12 HOURS?->No us Jose Manuel Hannon MD CHEMISTRY ORDERABLES Final R esult Performing Organization Address City/[facility]/ZIP Co de Phone Number [facility] [place] [address] [place] [address], * (ABNORMAL) FERRITIN (03/16/2025 8:41 AM CDT) Ferritin 10(L) 11 - 307 ng/mL [facility] Blood 03/16/2025 8:41 AM CDT Narrative [facility] - 03/16/2025 2:12 PM CDT Release to patient->Immediate Jose Manuel Hannon MD CHEMISTRY ORDERABLES Final R esult [facility] [place] [address], * (ABNORMAL) CMP (COMPREHENSIVE METABOLIC PANEL) (03/16/2025 8:41 AM CDT) Glucose 79 70 - 105 mg/dL [facility] Blood Urea Nitrogen 14 7 - 25 mg/dL [facility] Creatinine 0.8 0.6 - 1.2 mg/dL [facility] Sodium 136 136 - 145 mEq/L [facility] Potassium 3.9 3.5 - 5.1 mEq/L [facility] Chloride 98 98 - 107 mEq/L [facility] Bicarbonate 29 21 - 31 mEq/L [facility] Total Bilirubin 0.5 0.3 - 1.0 mg/dL [facility] Alk. Phosphatase 88 34 - 104 U/L [facility] Aspartate Aminotransferase 48(H) 13 - 39 U/L [facility] Alanine Aminotransferase 66(H) 7 - 52 U/L [facility] Total Protein 7.6 6.4 - 8.9 g/dL [facility] Albumin 4.7 3.5 - 5.7 g/dL [facility] Calcium 10.1 8.6 - 10.3 mg/dL [facility] Anion Gap 12.9 7.0 - 15.0 mEq/L [facility] Globulin 2.9 2.0 - 3.5 g/dL [facility] EGFR 92 >60 ml/min/1. 73m2 [facility] Comment: This eGFR is calculated using 2020 CKD-EPI Creatinine equation without race modifier based on the NKF-ASN task force recommendations Equation: bTVL=564*min(SCr/k,1)a*max(SCr/k,1)-1.200*0.9938Age*1.012 (if female), where SCr is serum creatinine, k is 0.7 for females and 0.9 for males, and a is -0.241 for females and -0.302 for males Blood 03/16/2025 8:41 AM CDT Narrative [facility] - 03/16/2025 9:37 AM CDT Release to patient->Immediate IS THE PATIENT REQUIRED TO BE FASTING FOR 8 HOURS?->No us Jose Manuel Hannon MD CHEMISTRY ORDERABLES Final R esult [facility] [place] [address], * (ABNORMAL) COMPLETE BLOOD COUNT (CBC) WITH DIFF (03/16/2025 8:41 AM CDT) WBC 4.4 4.0 - 10.0 10*3/uL [facility] HGB 10.2(L) 11.2 - 15.7 g/dL [facility] HCT 33.3(L) 34.1 - 44.9 % [facility] PLT 301 163 - 369 10*3/uL [facility] MPV 8.9(L) 9.4 - 12.4 fL [facility] RBC 4.17 3.93 - 5.22 10*6/uL [facility] MCV 80 79 - 95 fL [facility] MCH 24.5(L) 25.6 - 32.2 pg [facility] MCHC 30.6(L) 32.2 - 36.5 g/dL [facility] RDW 16.7(H) 11.6 - 14.4 % [facility] Absolute Neutrophil Count 3,036 cells/uL [facility] Absolute Seg Count 3,036 1,440 - 6,600 cells/uL [facility] Absolute Lymph Count 748(L) 760 - 4,000 cells/uL [facility] Absolute Tom Green Count 352 160 - 1,200 cells/uL [facility] Absolute Eos Count 220 0 - 300 cells/uL [facility] Segmented Neutrophils 69(H) 36 - 66 % [facility] Lymphocytes 17(L) 19 - 40 % [facility] Monocytes 8 4 - 12 % [facility] Eosinophils 5(H) 0 - 3 % [facility] Metamyelocytes 1 0 - 2 % [facility] WBC Estimate Normal [facility] Platelet Estimate Normal CA [facility] RBC Morphology Abnormal [facility] Hypochromasia 1+ [facility] Anisocytosis 1+ [facility] Blood 03/16/2025 8:41 AM CDT Narrative [facility] - 03/16/2025 9:46 AM CDT Release to patient->Immediate us Jose Manuel Hannon MD HEMATOLOGY ORDERABLES Final Result Performing Organization Address City/State/[facility] Co de Phone Number [facility] [place] [address], * [facility] BONE DENSITOMETRY AXIAL SKELETON (03/07/2025 1:44 PM CDT) Anatomical Region Laterality Modality BODY N/A Other Narrative 03/07/2025 2:03 PM CDT EXAMINATION: [facility] BONE DENSITOMETRY AXIAL SKELETON INDICATIONS: 44-year-old asymptomatic postmenopausal female. Malignant neoplasm of upper-outer quadrant of left female breast. Patient is on hormonal therapy. Status post hysterectomy. COMPARISON: None. TECHNIQUE: The bone mineral density of each site was assessed by dual energy x-ray absorptiometry. FINDINGS: Lumbar spine: The bone mineral density from L1-L3 is 1.07, which corresponds to a T-score of - 0.9 and a Z-score of -1.9. Hip: The bone mineral density of the right femoral neck is 0.79, which corresponds to a T-score of -1.8 and a Z-score of -1.8. IMPRESSION Osteopenia. Electronically signed by: NATHAN BETANCOURT MD Date of Signature: 03/07/2025 14:03:48 Procedure Note Nathan Betancourt MD - 03/07/2025 EXAMINATION: PRAFUL BONE DENSITOMETRY AXIAL SKELETON INDICATIONS: 44-year-old asymptomatic postmenopausal female. Malignant neoplasm ofupper-outer quadrant of left female breast. Patient is on hormonaltherapy. Status post hysterectomy. COMPARISON: None. TECHNIQUE: The bone mineral density of each site was assessed by dual energy x-rayabsorptiometry. FINDINGS: Lumbar spine: The bone mineral density from L1-L3 is 1.07, which corresponds to aT-score of - 0.9 and a Z-score of -1.9. Hip: The bone mineral density of the right femoral neck is 0.79, whichcorresponds to a T-score of -1.8 and a Z-score of -1.8. IMPRESSION Osteopenia. Electronically signed by: NATHAN BETANCOURT MD Date of Signature: 03/07/2025 14:03:48 Jose Manuel Hannon MD IMG DEXA ORDERABLES Final Re sult * HEPATITIS C ANTIBODY (03/10/2024 11:19 AM CDT) HEPATITIS C VIRUS AB SIGNAL CUTOFF NON REACTIVE NON REACTIVE [facility] HEPATITIS C VIRUS AB COMMENT [facility] Comment: NOT INFECTED WITH HCV UNLESS EARLY OR ACUTE INFECTION IS SUSPECTED (WHICH MAY BE DELAYED IN AN IMMUNOCOMPROMISED INDIVIDUAL), OR OTHER EVIDENCE EXISTS TO INDICATE HCV INFECTION. 03/10/2024 11:1 9 AM CDT Narrative [facility] - 03/11/2024 9:08 AM CDT TESTING PERFORMED AT: [] [facility], [address] [place] [address], [place], [address], PHONE: [phone], FIRE LIEUTENANT MARINE: KARY LOAIZA, PHD Crystal Branham APRN, COAL OR ORE CONTROLLER CHEMISTRY ORDERABLES Fin al Result [facility] [place] [address] [phone] from Last 3 Months or Most Recently Relevant to Health Maintenance Insurance [facility] Care Teams Car Coupler Relationship Specialty Start Date End Date Crystal Branham APRN, COAL OR ORE CONTROLLER [address] [place] [address] [phone] PCP - General Family Medicine 03/24/22 Jose Manuel Hannon MD [address] [place] [phone] Consulting Physician Oncology 03/24/22
--- OUTSIDE RECORDS SUMMARY | 2025-05-11 14:09 | XMS_ITS | Encounter Summary ---
Author Organization [facility] Address [address] [place] [address] Phone Care Team Providers Care Civil Defense Director Name Role Phone Maikol Branhamy BALA, SHERMAN Primary Care Provider + Jose Manuel Hannon MD Unavailable Reason for Visit * Reason Comments Medication Refill Encounter Details Date Type Department Care Team (Late st Contact Info) Description 05/17/2023 Refill [facility] [address] [phone] Jose Manuel Hannon MD [facility] [address] [address] Medication Refill Social History Tobacco Use Types Packs/Day Years [...] suspected to have Coronavirus/COVID-19? No / Unsure 04/22/2023 8:37 AM CDT documented as of this encounter Miscellaneous Notes * Telephone Encounter - Shey Tucker - 05/17/2023 7:37 AM CDT Please refill if appropriate. documented in this encounter Plan of Treatment Upcoming Encounters Date Type Department Care Team (Late st Contact Info) Description 06/14/2025 8:30 AM RESIDENTIAL MONITOR Office Visit [facility] [address] [address] Jose Manuel Hannon MD [address] [address] [phone] 06/14/2025 8:45 AM RESIDENTIAL MONITOR Clinical Support [facility] [address] [address] Nurse, Cc [facility] documented as of this encounter Visit Diagnoses Not on filedocumented in this encounter Additional Health Concerns Infection Onset Date Last Indicated Resolved Time C. difficile Rule-Out 01/07/2024 01/10/20242023 2:04 PM CDT documented as of this encounter Care Teams Civil Defense Director Relationship Specialty Start Date End Date Crystal Branham APRN, DATABASE DBA [address] [place] [phone] PCP - General Family Medicine 03/24/22 Jose Manuel Hannon MD [address] [place] [phone] Consulting Physician Oncology 03/24/22 documented as of this encounter
--- OUTSIDE RECORDS SUMMARY | 2025-05-11 14:09 | XMS_ITS | Encounter Summary ---
Author Organization [facility] Address [address] [place] [address] Phone Care Team Providers Care District Sales Manager Name Role Phone Maikol Branhamy BALA, SHERMAN Primary Care Provider + Jose Manuel Hannon MD Unavailable [phone] Reason for Visit * Reason Comments Medication Refill Encounter Details Date Type Department Care Team (Late st Contact Info) Description 09/03/2023 Refill [facility] [address] [address] Jose Manuel Hannon MD [facility] [address] [address] Medication Refill Social History Tobacco [...] on file documented as of this encounter Miscellaneous Notes * Telephone Encounter - Shey Tucker - 09/03/2023 1:36 PM CST Please refill if appropriate. BUFFER documented in this encounter Plan of Treatment Upcoming Encounters Date Type Department Care Team (Late st Contact Info) Description 06/14/2025 8:30 AM WOOD BUFFER Office Visit [facility] [address] [address] Jose Manuel Hannon MD [address] [facility] [address] [place] [address] 06/14/2025 8:45 AM WOOD BUFFER Clinical Support [facility] [address] [address] Nurse, Cc [facility] documented as of this encounter Visit Diagnoses Not on filedocumented in this encounter Additional Health Concerns Infection Onset Date Last Indicated Resolved Time C. difficile Rule-Out 01/07/2024 01/10/20242023 2:04 PM CDT documented as of this encounter Care Teams District Sales Manager Relationship Specialty Start Date End Date Crystal Branham APRN, POT RUNNER [address] [place] [address] PCP - General Family Medicine 03/24/22 Jose Manuel Hannon MD [address] [place] [phone] Consulting Physician Oncology 03/24/22 documented as of this encounter
--- OUTSIDE RECORDS SUMMARY | 2025-05-11 14:09 | XMS_ITS | Encounter Summary ---
Author Organization [facility] Address [address] [place] [address] Phone Care Team Providers Care Automotive Project Engineer Name Role Phone Makiol Branhamy BALA, SHERMAN Primary Care Provider + Jose Manuel Hannon MD Unavailable [phone] Reason for Visit * Reason Comments Medication Refill Encounter Details Date Type Department Care Team (Late st Contact Info) Description 10/01/2022 Refill [facility] [address] [address] Jose Manuel Hannon MD [facility] [address] [address] Medication Refill Social History Tobacco [...] suspected to have Coronavirus/COVID-19? No / Unsure 09/18/2022 11:48 AM COCOA MILLING MACHINE OPERATOR documented as of this encounter Miscellaneous Notes * Telephone Encounter - Shey Tucker - 2022 8:29 AM CST Please refill if appropriate. A MILLING MACHINE OPERATOR documented in this encounter Plan of Treatment Upcoming Encounters Date Type Department Care Team (Late st Contact Info) Description 06/14/2025 8:30 AM COCOA MILLING MACHINE OPERATOR Office Visit [facility] [address] [phone] Jose Manuel Hannon MD [address] [address] 06/14/2025 8:45 AM COCOA MILLING MACHINE OPERATOR Clinical Support [facility] [address] [phone] Nurse, Cc [facility] documented as of this encounter Visit Diagnoses Not on filedocumented in this encounter Additional Health Concerns Infection Onset Date Last Indicated Resolved Time C. difficile Rule-Out 01/07/2024 01/10/20242023 2:04 PM CDT documented as of this encounter Care Teams Automotive Project Engineer Relationship Specialty Start Date End Date Crystal Branham APRN, DEPARTMENT CHAIRPERSON [address] [place] [address] PCP - General Family Medicine 03/24/22 Jose Manuel Hannon MD [address] [place] [phone] Consulting Physician Oncology 03/24/22 documented as of this encounter
[2025-05-11 15:54] VITALS: BP 145/93; PULSE 89; RESP 18; TEMP 36.9; O2SAT 98
--- OUTSIDE RECORDS SUMMARY | 2025-05-11 16:06 | XMS_ITS | Encounter Summary ---
Author Organization [facility] Health Address [address] [facility] [place] [address] Care Team Providers Care Waste Reclaimer Name Role Phone Enrique Reyes MD Primary Care Provider [phone] Crystal Branham APRN-PROJECT GEOLOGIST Primary Care Provider Encounter Details Date Type Department Care Team (Late st Contact Info) Description 03/25/2023 Telephone [facility] - Centralized Scheduling [address] [place] [address] Elsa Gardner MD [address] [place] [address] Social History Tobacco Use Types Packs/Day Years [...] Description 05/14/2025 9:30 AM CDT Hospital Encounter [facility] [address] [place] [address] Stefany Mendoza MD [address] [facility] [address] [place] [phone] 05/14/2025 10:00 AM CDT Office Visit [facility] - General Surgery [address] [place] [phone] Stefany Mendoza MD [address] [facility] [address] [place] [phone] documented as of this encounter Visit Diagnoses Not on filedocumented in this encounter Care Teams Waste Reclaimer Relationship Specialty Start Date End Date Enrique Reyes MD [address] [place] [address] [address] [place] [phone] PCP - General 10/15/22 07/20/23 Crystal Branham, [employer] ARCHITECT-PROJECT GEOLOGIST [address] [place] [address] PCP - General Nurse Practitioner 02/02/24 documented as of this encounter
--- OUTSIDE RECORDS SUMMARY | 2025-05-11 16:07 | XMS_ITS ---
Author Organization [facility] Address [address], [facility] [address] [place] [address] Phone Care Team Providers Care Metal Tile Setter Name Role Phone Crystal Branham APRN, SHERMAN Primary Care Provider + Jose Manuel Hannon MD Unavailable [phone] Active Problems Problem Noted Date Diagnosed Date [...]
--- OUTSIDE RECORDS SUMMARY | 2025-05-11 16:07 | XMS_ITS | Encounter Summary ---
Author Organization [facility] Health Address [address] [place] [address] Care Team Providers Care Long Term Care Administrator Name Role Phone Crystal Branham Pascual ATTACHE-CORRECTIONAL PROGRAM OFFICER Primary Care Provider Reason for Visit * Reason Onset Date Comments Reschedule Appointment 05/08/2024 Encounter Details Date Type Department Care Team (Late st Contact Info) Description 05/08/2024 Telephone [facility] - PROFESSIONAL ADVISOR [address] [facility] [address] [place] [address] Mali Balderas MD [address] [place] [address] Reschedule Appointment Social History Tobacco [...] Hospital Encounter [facility] [address] [place] [address] Stefany Mendoza MD [address] [facility] [address] [place] [phone] 05/14/2025 10:00 AM CDT Office Visit [facility] - General Surgery [address] [place] [address] Stefany Mendoza MD [address] [facility] [address] [place] [address] documented as of this encounter [...] on filedocumented in this encounter Care Teams Long Term Care Administrator Relationship Specialty Start Date End Date Crystal Branham, ATTACHE-CORRECTIONAL PROGRAM OFFICER [facility] [place] [address] PCP - General Nurse Practitioner 02/02/24 documented as of this encounter
--- OUTSIDE RECORDS SUMMARY | 2025-05-11 16:07 | XMS_ITS | Clinical Summary ---
Author Organization [facility] Address [address], [address] [place] [address] Phone Care Team Providers Care Surveillance Operator Name Role Phone Carrol Crystal MCKENNA, MICROBIOLOGY QUALITY CONTROL TECHNICIAN Primary Care Provider + Jose Manuel Hannon MD Unavailable [phone] Allergies Active Allergy Reactions Criticality Noted Date [...] CDT Care Management [facility] [address] [phone] Navigator, Cc [facility] Nurse Care Management (EDUCATION PREP) 03/20/2025 1:00 PM CDT Clinical Support [facility] [address] [phone] Nurse, Cc [facility] Malignant neoplasm of upper-outer quadrant of left breast in female, estrogen receptor positive (HCC) (Primary Dx); Iron deficiency anemia, unspecified iron deficiency anemia type 03/20/2025 Travel 03/16/2025 8:45 AM CDT Lab [facility] [address] [phone] Lab, Cc [facility] Malignant neoplasm of upper-outer quadrant of left breast in female, estrogen receptor positive (HCC); Anemia due to unknown mechanism; Osteopenia of both hips 03/16/2025 8:15 AM CDT Office Visit [facility] [address] [address] Jose Manuel Hannon MD Malignant neoplasm of upper-outer quadrant of left breast in female, estrogen receptor positive (HCC) (Primary Dx); Anemia due to unknown mechanism; Osteopenia of both hips 03/16/2025 Results Follow-Up [facility] [address] [address] Jose Manuel Hannon MD LACTATE DEHYDROGENASE (LD), IRON W/ IRON BINDING CAPACITY [place], RETICULOCYTE COUNT (RETIC), Additional followed-up results: 2 03/16/2025 Travel 03/07/2025 1:15 PM CDT Ancillary Procedure [facility] [address] [address] Malignant neoplasm of upper-outer quadrant of left breast in female, estrogen receptor positive (HCC) 03/07/2025 Travel 02/16/2025 Refill [facility] [address] [address] Jose Manuel Hannon MD Medication Refill from [...] st Contact Info) Description 06/14/2025 8:30 AM GUN EXAMINER Office Visit [facility] [address] [phone] Jose Manuel Hannon MD [facility] [address] [address] 06/14/2025 8:45 AM GUN EXAMINER Clinical Support [facility] [address] [phone] Nurse, Cc [facility] Health Maintenance Due Date Last Done Comments [...] IRON 32(L) 50 - 212 ug/dL [facility] UIBC 424(H) 155 - 355 ug/dL [facility] TIBC 456 261 - 478 ug/dl [facility] % Saturation 7(L) 20 - 50 % [facility] 03/16/2025 8:41 AM CDT Narrative [facility] - 03/16/2025 10:25 AM CDT Release to patient->Immediate us Jose Manuel Hannon MD LAB SEND OUTS Final Result CAN[facility]ER EXTERMINATOR HELPER TERMITE [facility] [place] [address], * VITAMIN B12 (03/16/2025 8:41 AM CDT) Vitamin B12 407 180 - 914 pg/mL [facility] Blood 03/16/2025 8:41 AM CDT [facility] - 03/16/2025 2:12 PM CDT Release to patient->Immediate Jose Manuel Hannon MD CHEMISTRY ORDERABLES Final R esult Performing Organization Address [facility] de Phone Number [facility] [place] [address], * (ABNORMAL) RETICULOCYTE COUNT (RETIC) (03/16/2025 8:41 AM CDT) Reticulocyte count 1.74(H) 0.50 - 1.70 % [facility] RET-He 28.30 28.20 - 36.60 pg [facility] Comment: RET-He is a direct assessment of incorporation of iron into erythrocyte hemoglobin. It provides an indirect measure of the iron available for new erythropoiesis over past 2-4 days. Blood 03/16/2025 8:41 AM CDT [facility] - 03/16/2025 8:50 AM CDT Release to patient->Immediate Jose Manuel Hannon MD HEMATOLOGY ORDERABLES Final Result Performing Organization Address [facility] de Phone Number [facility] [place] [address], * LACTATE DEHYDROGENASE (LD) (03/16/2025 8:41 AM CDT) LDH 185 140 - 271 U/L [facility] Blood 03/16/2025 8:41 AM CDT [facility] - 03/16/2025 9:37 AM CDT Release to patient->Immediate us Jose Manuel Hannon MD CHEMISTRY ORDERABLES Final R esult Performing Organization Address City/[facility]/ZIP Co de Phone Number [facility] [place] [address] [place] [address], * HAPTOGLOBIN (03/16/2025 8:41 AM CDT) HAPTO 139 44 - 215 mg/dL [facility] EXTERMINATOR HELPER TERMITE [facility] Blood 03/16/2025 8:[address] [facility] - 03/16/2025 1:27 PM CDT Release to patient->Immediate us Jose Manuel Hannon MD CHEMISTRY ORDERABLES Final R esult Performing Organization Address [facility] Co de Phone Number [facility] [place] [address] [place] [address], * FOLIC ACID (FOLATE) (03/16/2025 8:41 AM CDT) Folate 14.71 >=5.90 ng/mL [facility] Blood 03/16/2025 8:41 AM CDT [facility] - 03/16/2025 2:12 PM CDT Release to patient->Immediate IS THE PATIENT REQUIRED TO BE FASTING FOR 12 HOURS?->No us Jose Manuel Hannon MD CHEMISTRY ORDERABLES Final R esult Performing Organization Address City/[facility]/ZIP Co de Phone Number [facility] [place] [address] [place] [address], * (ABNORMAL) FERRITIN (03/16/2025 8:41 AM CDT) Ferritin 10(L) 11 - 307 ng/mL [facility] Blood 03/16/2025 8:41 AM CDT Narrative [facility] EXTERMINATOR HELPER TERMITE [facility] - 03/16/2025 2:12 PM CDT Release to patient->Immediate Jose Manuel Hannon MD CHEMISTRY ORDERABLES Final R esult CAN[facility]ER EXTERMINATOR HELPER TERMITE [facility] [place] [address], * (ABNORMAL) CMP (COMPREHENSIVE METABOLIC PANEL) (03/16/2025 8:41 AM CDT) Glucose 79 70 - 105 mg/dL [facility] EX[facility] Blood Urea Nitrogen 14 7 - 25 mg/dL [facility] Creatinine 0.8 0.6 - 1.2 mg/dL [facility] Sodium 136 136 - 145 mEq/L [facility] Potassium 3.9 3.5 - 5.1 mEq/L [facility] Chloride 98 98 - 107 mEq/L [facility] Bicarbonate 29 21 - 31 mEq/L [facility] Total Bilirubin 0.5 0.3 - 1.0 mg/dL [facility] Alk. Phosphatase 88 34 - 104 U/L [facility] Aspartate Aminotransferase 48(H) 13 - 39 U/L [facility] Alanine Aminotransferase 66(H) 7 - 52 U/L [facility] Total Protein 7.6 6.4 - 8.9 g/dL [facility] Albumin 4.7 3.5 - 5.7 g/dL [facility] Calcium 10.1 8.6 - 10.3 mg/dL [facility] Anion Gap 12.9 7.0 - 15.0 mEq/L [facility] Globulin 2.9 2.0 - 3.5 g/dL [facility]MIN[facility] EGFR 92 >60 ml/min/1. 73m2 [facility] EXTERMINATOR HELPER TERMITE [facility] Comment: This eGFR is calculated using 2020 CKD-EPI Creatinine equation without race modifier based on the NKF-ASN task force recommendations Equation: hMMD=373*min(SCr/k,1)a*max(SCr/k,1)-1.200*0.9938Age*1.012 (if female), where SCr is serum creatinine, k is 0.7 for females and 0.9 for males, and a is -0.241 for females and -0.302 for males Blood 03/16/2025 8:41 AM CDT Narrative CANCER EXTERMINATOR HELPER TERMITE [facility] - 03/16/2025 9:37 AM CDT Release to patient->Immediate IS THE PATIENT REQUIRED TO BE FASTING FOR 8 HOURS?->No us Jose Manuel Hannon MD CHEMISTRY ORDERABLES Final R esult CANCER EXTERMINATOR HELPER TERMITE [facility] [place] [address], * (ABNORMAL) COMPLETE BLOOD COUNT (CBC) WITH DIFF (03/16/2025 8:41 AM CDT) WBC 4.4 4.0 - 10.0 10*3/uL [facility] HGB 10.2(L) 11.2 - 15.7 g/dL [facility] EXTERMINATOR HELPER TERMITE [facility] HCT 33.3(L) 34.1 - 44.9 % CANCER EXTERMINATOR HELPER TERMITE [facility] PLT 301 163 - 369 10*3/uL [facility] MPV 8.9(L) 9.4 - 12.4 fL CANCER EXTERMINATOR HELPER TERMITE [facility] RBC 4.17 3.93 - 5.22 10*6/uL [facility] MCV 80 79 - 95 fL CANCER EXTERMINATOR HELPER TERMITE [facility] MCH 24.5(L) 25.6 - 32.2 pg CANCER EXTERMINATOR HELPER TERMITE [facility] MCHC 30.6(L) 32.2 - 36.5 g/dL CANCER EXTERMINATOR HELPER TERMITE [facility] RDW 16.7(H) 11.6 - 14.4 % CANCER EXTERMINATOR HELPER TERMITE [facility] Absolute Neutrophil Count 3,036 cells/uL [facility] Absolute Seg Count 3,036 1,440 - 6,600 cells/uL [facility] Absolute Lymph Count 748(L) 760 - 4,000 cells/uL [facility] Absolute [place]on Count 352 160 - 1,200 cells/uL [facility] Absolute Eos Count 220 0 - 300 cells/uL [facility] Segmented Neutrophils 69(H) 36 - 66 % [facility] Lymphocytes 17(L) 19 - 40 % [facility] C ENTER [facility] Monocytes 8 4 - 12 % CAN[facility]ER CHAD TER [facility] Eosinophils 5(H) 0 - 3 % [facility] C [facility]TER [facility] Metamyelocytes 1 0 - 2 % CANCE R [facility]TERMIN[facility] WBC Estimate Normal [facility] Platelet Estimate Normal CA NCER EXTERMINATOR HELPER TERMITE [facility] RBC Morphology Abnormal [facility] R [facility] Hypochromasia 1+ [facility] Anisocytosis 1+ [facility] Blood 03/16/2025 8:41 AM CDT Narrative [facility] EXTERMINATOR [facility] - 03/16/2025 9:46 AM CDT Release to patient->Immediate us Jose Manuel Hannon MD HEMATOLOGY ORDERABLES Final Result Performing Organization Address City/State/[facility] Co de Phone Number CANCER EXTERMINATOR HELPER TERMITE [facility] [place] [address], * [facility] BONE DENSITOMETRY AXIAL SKELETON (03/07/2025 1:44 PM CDT) Anatomical Region Laterality Modality BODY N/A Other Narrative 03/07/2025 2:03 PM CDT EXAMINATION: [facility] BONE DENSITOMETRY AXIAL SKELETON INDICATIONS: [...] SIGNAL CUTOFF NON REACTIVE NON REACTIVE CANCER EXTERMINATOR HELPER TERMITE [facility] HEPATITIS C VIRUS AB COMMENT CANCER EXTERMINATOR HELPER TERMITE [facility] Comment: NOT INFECTED WITH HCV UNLESS EARLY OR ACUTE INFECTION IS SUSPECTED (WHICH MAY BE DELAYED IN AN IMMUNOCOMPROMISED INDIVIDUAL), OR OTHER EVIDENCE EXISTS TO INDICATE HCV INFECTION. 03/10/2024 11:1 9 AM CDT Narrative [facility] - 03/11/2024 9:08 AM CDT TESTING PERFORMED AT: [] [facility], [address] [place] [address], [place], [address], PHONE: [phone], CRYPTOLOGIC LINGUIST: KARY LOAIZA, PHD Crystal Branham APRN, MICROBIOLOGY QUALITY CONTROL TECHNICIAN CHEMISTRY ORDERABLES Fin al Result CANCER EXTERMINATOR HELPER TERMITE [facility] [place], [place] [address] [phone] from Last 3 Months or Most Recently Relevant to Health Maintenance Insurance [facility] Care Teams Surveillance Operator Relationship Specialty Start Date End Date Crystal Branham APRN, MICROBIOLOGY QUALITY CONTROL TECHNICIAN [address] [place] [address] [phone] PCP - General Family Medicine 03/24/22 Jose Manuel Hannon MD [address] [place] [phone] Consulting Physician Oncology 03/24/22
--- OUTSIDE RECORDS SUMMARY | 2025-05-11 16:07 | XMS_ITS | Clinical Summary ---
Author Organization [facility] Address [facility] [place] [address] Care Team Providers Care Mission Support Specialist Name Role Phone Crystal Branham Primary Care Provider [phone] David Adamson MD Unavailable [phone] Jose Alfredo Crowell MD Unavailable [phone] Allergies Active Allergy Reactions Criticality Noted Date Comments Chlorhexidine Itching,Rash Low 04/12/2022 Chlora Prep Iodine Rash Low 07/06/2018 Naproxen Other (see comment) Low 07/06/2018 I prefer not to take it, I get severe heartburn Medications anastrozole (ARIMIDEX) 1 MG tablet Take 1 tablet by mouth daily. 11/17/19 23 Active loperamide (IMODIUM) 2 MG capsule TAKE 1 TABLET BY MOUTH 4 TIMES DAILY NEEDED FOR DIARRHEA FOR UP TO 30 DAYS. 10/08/19 24 Active B-D 3CC LUER-XIANG SYR 25GX5/8 25G X 5/8 3 ML Misc USE ONE SYRINGE PER B12 INJECTION 01/13/20 24 Active venlafaxine XR (EFFEXOR-XR) 75 MG 24 hr capsuleIndicati ons:Anxiety Take 1 capsule (75 mg total) by mouth daily. 90 capsule 1 12/02/19 25 Active losartan (COZAAR) 50 MG tabletIndicatio ns:Primary hypertension TAKE 1 TABLET BY MOUTH EVERY DAY 90 tablet 1 03/05/20 25 Active cyanocobalamin (B-12) 1000 MCG/ML injection INJECT 1000MCG BY INJECTION ROUTE EVERY 30 DAYS FOR 8 DOSES 08/25/19 25 Active pantoprazole EC (PROTONIX) 40 MG tablet take 1 (one) tablet by mouth 2 times daily 02/03/20 25 Active Calcium Carb-Cholecalci ferol (CALCIUM + D3 OR) Active nirmatrelvir & ritonavir 300/100 (PAXLOVID, 300/100,) 20 x 150 MG & 10 x 100MG tablet packIndications :COVID-19 Take TWO nirmatrelvir 150 mg tablet(s) along with ONE ritonavir 100 mg tablet, with all three tablets taken together, twice daily for 5 days. May take with or without food. Swallow tablets whole. Do not chew, break or crush.. 1 each 03/30/20 25 Active guaiFENesin-cod eine (GUAIFENESIN AC) 100-10 MG/5ML syrupIndication s:Cough Take 5 mLs by mouth every 4 (four) hours as needed for Cough. Indications: Cough 120 mL 03/30/20 25 Active amLODIPine (NORVASC) 5 MG tabletIndicatio ns:Primary hypertension TAKE 1 TABLET (5 MG TOTAL) BY MOUTH DAILY. APPOINTMENT NEEDED, PLEASE CONTACT OFFICE 90 tablet 1 04/19/20 25 Active amLODIPine (NORVASC) 5 MG tabletIndicatio ns:Primary hypertension TAKE 1 TABLET (5 MG TOTAL) BY MOUTH DAILY. 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 Vitamin D deficiency 12/14/2022 'Ffixd-gyc-eywmk' infant wit h signs of malnutrition ([facility]/HCC) 11/06/2022 Primary hypertension 04/07/2022 Primary insomnia 04/07/2022 Former smoker 04/07/2022 Anxiety 04/07/2022 Breast cancer ([facility]/HCC HHS/HCC) 03/18/2022 Encounters Date Type Department Care Team Description 04/16/2025 9:00 AM CDT - 04/16/2025 11:59 PM CDT Hospital Encounter [facility] [place]tras[place] [address] Jose Manuel Hannon MD Discharge Disposition: Home or Self Care (Routine Discharge) 04/16/2025 Travel 04/05/2025 2:57 PM CDT - 04/05/2025 11:59 PM CDT Hospital Encounter [facility] Radiation Oncology [address] [place] [address] Ferny Ryder MD Discharge Disposition: Home or Self Care (Routine Discharge) 04/05/2025 Travel 03/30/2025 10:00 AM CDT Office Visit [facility] Family & Internal Medicine [address] [id number] Crystal Branham APNP Sore Throat (Sudden onset sore throat last night.); Body Aches (Onset this morning); Cough 03/30/2025 Travel 03/16/2025 Scan HEALTH INFO SRVCS Scanned, Doc [facility] from Last 3 Months Immunizations Immunization Administration Dates Next Due Tdap (Adacel) 04/25/2021 Family History Medical History Relation Comments Diabetes Father Cancer Maternal Grandfather leukemia? Thyroid Maternal Grandmother Thyroid Mother Alzheimers Paternal Grandfather Parkinson's Disease Paternal Grandfather Relation Status Comments Brother Alive Daughter Alive Father Alive Maternal Grandfather Maternal Grandmother Alive Mother Alive Paternal Grandfather Paternal Grandmother Sister Alive Son Alive Social History Tobacco Use Types Packs/Day Years Used Date Smoking Tobacco: Former Cigarettes Q uit: 07/09/2022 Smokeless Tobacco: Never Tobacco Cessation:Counseling Given: Not Answered Alcohol Use Standard Drinks/Week Comments Yes 0 (1 standard drink = 0.6 oz pur e alcohol) weekends. PHQ-2 Answer Date Recorded Patient Health Questionnaire-2 Score 0 12/01/2024 Comments No Sex and Gender Information Value Date Recorded Sex Assigned at Female 03/30/2025 10:24 AM CDT Legal Sex Female 5:07 PM CDT Gender Identity Not on file Sexual Orientation Not on file Last Filed Vital Signs Vital Sign Reading Time Taken Comments Blood Pressure 169/104 04/05/2025 3:06 PM CDT Pulse 85 04/05/2025 3:06 PM CDT Temperature 36.6 C (97.8 F) 03/30/2025 10:24 AM CDT Respiratory Rate 18 03/30/2025 10:24 AM CDT Oxygen Saturation 98% 04/05/2025 3:06 PM CDT Inhaled Oxygen Concentration - - Weight 97.7 kg (215 lb 6.4 oz) 04/05/2025 3:06 P M CDT Height 172.7 cm (5' 8) 03/30/2025 10:24 AM CDT Body Mass Index 32.75 03/30/2025 10:24 AM CDT Plan of Treatment Upcoming Encounters Date Type Department Care Team (Late st Contact Info) Description 04/05/2026 10:30 AM CDT Appointment [facility] Radiation Oncology [address] [place] [address] [place] [address] Ferny Ryder MD [address] [place] [id number] Health Maintenance Due Date Last Done Comments Colorectal Cancer Screening Colonoscopy (10 Years) 1978 Hepatitis C 1996 Hepatitis B Vaccines (1 of 3 - 19+ 3-dose series) 1997 Annual Physical 02/17/2025 02/18/2024 COVID-19 Vaccine (2 - 2024-2 6 season) 2025 10/14/2020 DTaP, Tdap and Td Vaccines ( 2 - Td or Tdap) 04/25/2031 04/25/2021 PHQ-2 (Physician [place]) Completed 12/01/2024 Meningococcal B Vaccine Aged Out No l onger eligible based on patient's age to complete this topic Meningococcal Vaccine Aged Out No lyly jess eligible based on patient's age to complete this topic Pneumococcal Vaccine: Pediat rics (0 to 5 Years) and At-Risk Patients (6 to 49 Years) Aged Out No longer eligi ble based on patient's age to complete this topic RSV Immunizations Under 20 Months Aged Out No longer eligible based on patient's age to complete this topic Procedures Procedure Name Priority Date/Time Associated Diagnosis Comments US ABD LIMITED Routine 04/16/2025 9:31 AM CDT Malignant neoplasm of upper-outer quadrant of left breast, estrogen receptor positive (CMS/HCC HHS/HCC) Anemia due to unknown mechanism Osteopenia of both hips CULTURE STREP A Routine 03/30/2025 10:48 AM CDT Acute cough Sore throat Body aches CORONAVIRUS (COVID-19) INFLUENZA A & B ANTIGEN IA PANEL Routine 03/30/2025 Acute cough Sore throat Body aches STREP A RAPID Routine 03/30/2025 Acute cough Sore throat Body aches from Last 3 Months Results * US ABD LIMITED (04/16/2025 9:31 AM CDT) Anatomical Region Laterality Modality Abdomen Ultrasound 04/16/2025 9:36 AM CDT Impressions 04/16/2025 9:38 AM CDT Impression: Hepatomegaly and hepatic steatosis. Referred By: JOSE MANUEL HANNON Interpreted By: Diomedes Delgado MD, 04/16/2025 9:36 AM Narrative 04/16/2025 9:38 AM CDT [address] [address] Procedure: US ABD LIMITED Indication: Elevated LFT Comparison: None Technique: Grayscale and color Doppler ultrasound of the right upper quadrant was performed. Findings: Gallbladder: Intraluminal contents: No stones or sludge. Wall thickness: 0.2 cm. This is within normal limits. Distention: Not abnormally distended. Pericholecystic fluid: No pericholecystic fluid. Sonographic Lopez's sign is absent. Bile Ducts: No intrahepatic or extrahepatic ductal dilation Common bile duct diameter: 0.4 cm. Liver: Increased echogenicity compatible with hepatic steatosis. No focal mass. There is geographic focal fatty sparing along the gallbladder fossa. The main portal vein is patent with appropriate direction of flow. The liver measures 19.7 cm, enlarged. Pancreas: Visualized portions are within normal limits. Kidneys: Right kidney measures 10.5 cm. No hydronephrosis. Fluid: None. Procedure Note Diomedes Delgado MD - 04/16/2025 [facility] [address] [place], [place] [address] Procedure: US ABD LIMITED Indication: Elevated LFT Comparison: None Technique: Grayscale and color Doppler ultrasound of the right upperquadrant was performed. Findings: Gallbladder: Intraluminal contents: No stones or sludge. Wall thickness: 0.2 cm. This is within normal limits. Distention: Not abnormally distended. Pericholecystic fluid: No pericholecystic fluid. Sonographic Lopez's sign is absent. Bile Ducts: No intrahepatic or extrahepatic ductal dilation Common bile duct diameter: 0.4 cm. Liver: Increased echogenicity compatible with hepatic steatosis. No focalmass. There is geographic focal fatty sparing along the gallbladderfossa. The main portal vein is patent with appropriate direction of flow.The liver measures 19.7 cm, enlarged. Pancreas: Visualized portions are within normal limits. Kidneys: Right kidney measures 10.5 cm. No hydronephrosis. Fluid: None. Impression: Hepatomegaly and hepatic steatosis. Referred By: JOSE MANUEL HANNON Interpreted By: Diomedes Delgado MD, 04/16/2025 9:36 AM Jose Manuel Hannon MD ULTRASOUND Final Result * CULTURE STREP A (MG/SJS/SMD Only) (03/30/2025 10:48 AM CDT) THROAT CULTURE STREP A ONLY Negative for Group A Streptococci Negative for Group A Streptococci 03/31/2025 7:10 PM CDT [facility] [place] STRUCTURE OF ANTERIOR REGION OF NECK / Unknown 03/30/2025 10:48 AM CDT Crystal ULRICH MICROBIOLOGY - GENERAL ORDE OLI Final Result [facility] [address] [place] [address], * (ABNORMAL) CORONAVIRUS (COVID-19) INFLUENZA A & B ANTIGEN IA PANEL (03/30/2025) Pathologist [facility] CORONAVIRUS ANTIGEN IA POSITIVE(A) NEGATIVE [facility] INFLUENZA A NEGATIVE NEGATIVE [facility] INFLUENZA B NEGATIVE NEGATIVE [facility] Internal Control: VALID VALID [facility] NASAL STRUCTURE / Unknown 03/30/2025 Crystal ULRICH MICROBIOLOGY - GENERAL ROSALBA BAIRD Final Result Performing Organization Address City/[facility]/[place] [address], [place] * STREP A RAPID (03/30/2025) Pathologist [facility] RAPID STREP TEST NEGATIVE NEGATIVE [facility] Internal Control: VALID VALID [facility] STRUCTURE OF ANTERIOR REGION OF NECK / Unknown 03/30/2025 Crystal ULRICH MICROBIOLOGY - GENERAL ROSALBA BAIRD Final Result Performing Organization Address City/[facility] [place] [place] [address], [place] from Last 3 Months Insurance Care Teams Mission Support Specialist Relationship Specialty Start Date End Date Crystal Branham APNP [address] [place] [address] PCP - General NURSE PRACTITIONER 04/15/21 David Adamson MD [address] [id number] Medical Oncologist HEMATOLOGY/ONCOLOGY 04/07/22 Jose Alfredo Crowell MD [address] [place] [address] DERMATOLOGY 05/26/24 05/26/25
--- OUTSIDE RECORDS SUMMARY | 2025-05-11 16:07 | XMS_ITS ---
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/HCC) 11/06/2022 Primary hypertension 04/07/2022 Primary insomnia 04/07/2022 Former smoker 04/07/2022 Anxiety 04/07/2022 Breast cancer ([facility]) 03/18/2022 Current Treatment and Therapy Plans No current plan information found. Past Treatment and Therapy Plans No past plan information found. Radiation Treatments * Course C1 12/07/2022 - 01/15/2023 Treatment Period Energy Fraction Dose Fractions Total Dose Plans Planned [id number]_LN_BH 12/07/2022 - 01/15/2023 / Reference Points Delivered L_CW_LN_BH 12/07/2022 - 01/15/2023 [id number] Treatment Summaries Breast cancer ([facility] HHS/[facility])* Images from the original note were not included. Survivorship Care Plan Patient Name Evangelina Adler Date of 1980 Plan Completed By Leigha BOSS on 05/05/23 Care Team Medical Oncologist Dr. Hannon [phone] Gardner [phone] Ryder [phone] Primary Care Physician MOJGAN Alegre [phone] Nurse Navigator Leigha BOSS [phone] Diagnosis Breast cancer ([facility]/HCC) ([facility]/HCC) Age at diagnosis 41-year-old Pertinent Past Medical History Past Medical History: Diagnosis Date Breast cancer ([facility]/HCC) 03/18/2022 Cancer ([facility]) Diagnostic Procedures Mammogram on 02/13/22 PET scan on 04/15/22 Mammogram and US on 09/16/22 Surgery Biopsy of Left breast on 03/30 Bilateral Mastectomy on 10/16/22 Family History Family History Problem Relation Name Age of Onset Thyroid Mother Diabetes Father Thyroid Maternal Grandmother Cancer Maternal Grandfather leukemia? Parkinson's Disease Paternal Grandfather Alzheimers Paternal Grandfather Chemotherapy and Other Treatments Dose-dense AC followed by weekly taxol from 04/23/22-09/04/22 [facility] agonist Anastrozole 11/09/2022 - Present [place] 01/2023 - 02/28/2024 Treatment on clinical trial? No Pre-operative chemotherapy administered? Yes Radiation Treatment Site: Left Chestwall Total Dose: 5040 cGy Treatment Dates: 12/07/22-01/14/23 Ongoing Toxicities and Side Effects Pt doing well overall Follow-Up Care Cancer Surveillance Tests Diagnostic Mammogram How Often? 6 months after completion of radiation and then at least annually determined by the recommendations of the previous mammogram Ordering Provider Follow-Up Instructions Physical exam with breast surgeon Every 6 months for 2 years, then every year for 3 years alternating with medical oncology Coordinating physician Physical exam with medical oncologist Every 6 months for 2 years, then every year for 3 years alternating with breast surgeon Coordinating physician According to the [place] [employer], about 20 percent of cancer diagnoses are due to factors that are within your control such as nutrition, physical activity, smoking and alcohol use. We have made a commitment to your continued wellness as you transition into survivorship! Nutritional health and maintaining a healthy weight are a few of the many important parts of your recovery. You have already received tools to encourage healthy habits from our staff, and we want youto feel confident with your wellness decisions in the future. Body Mass Index or BMI is one way to determine if a person???s weight places them at risk for disease such as diabetes, heart disease and cancer. Below 18.5-underweight 18.5-24.9-normal or healthy weight 25-29.9-overweight 30-39.9-obese 40 and above-morbidly obese Your Body mass index is 24.51 kg/m??. Other Concerns and Resources If you are experiencing issues with emotional or mental health, parenting, work/employment, finances, and/or insurance, there may be local and national resources available to assist you. Please discuss this with your oncology team and/or primary care provider for additional information. Below is a general list of resources: Cancer Support Resources at [facility] https://www.[facility].org/StElizabeths/Services/Cancer-Care/Cancer-Center [facility] offers services for lifestyle management for mind-body health. Services range from yoga, individual and group smoking cessation counseling to mind/body skills instruction and mindfulness classes. Call for more information. Clinical Trials are available for adults through [employer], a national cooperative group. Call for more information. Dietary Services are available from registered dietitians who can perform nutritional assessments and give advice on dietary problems. Call for more information. Home Health Services are available after a hospital admission. These individuals can provide comfort in the home setting along with support and education. Call for more information. Inpatient Centerless Grinder Set Up Operator & Case Management Services Inpatient oncology social workers can help with home services, placement of patients, transportation, crisis intervention and communityresources. Care coordination for patients is done through this service, especially in outlying areas. Call for more information. Nurse Navigator This individual helps guide cancer patients during this challenging and difficult time. She identifies needs and coordinates services of care and designs individualized survivorship care plans after treatment is complete. Call ext [phone] or ext [phone] for more information. Occupational, Speech and Physical Therapy Therapy services are helpful for cancer patients from theinitial diagnosis, through survivorship or the end stages of care. Cancer and its treatment sometimes improves physical abilities but not functional outcomes. Therapy interventions used are holistic and comprehensive. Varying services are offered at seven [facility] outpatient clinics in [facility]. Call [phone] for more information. Palliative Care, Pain Management and Hospice Palliative Care can help patients and their significant others understand health care decisions to help guide a plan of care that is in line with their personal beliefs and values. The team also offers a comprehensive assessment of pain and other symptoms and can work with the patient's primary health care provider to improve quality of life. Call for more information. Spiritual Care Chaplains can provide spiritual comfort for the mind, body and spirit. Call for more information. Radiation Therapy and [facility] Radiation Therapy offers state of the art radiation for cancer patients. The Day Hospital offers an outpatient area for chemotherapy, blood infusions, dressing changes and antibiotics. Call for more information. Regional Wound Center The Wound Center heals chronic, non-healing wounds. Call for more information. Wound, Ostomy, Continence Services Services range from wound care, ostomy appliance teaching and continence service for any patient needing these services. Call for more information. Resources for Cancer Support [facility] provides care for those who cannot afford to pay through its [facility] Program. More information is available at https://www.[facility].org/StElizabeths/Patients-Guests/Qsrqgjx-Sqpcxmdsr-Nlwvgjqf [employer] provides financial assistance, to those who qualify, regardless of whether [facility] is insured. More information is available at www. [facility].org/Public/FinancialAssistance.aspx. [place] Department of Public Health protects the state's residents and visitors through the prevention and control of disease and injury. Website: https://www.counts include 234 beds at the [facility].[place].gov/topics-services/grbduowf-zbv-wknvtoqmjw/cancer [place] [employer] is a national nonprofit organization with programs and services provided through local [employer] [employer] offices, as well as its Clinical Navigation program based at [facility] Cancer Mar[place]eller at [facility]. Websites: www.cancer.org and www.[facility]/cancer/navigator. html. Government Assistance Programs There are several federal and state programs that provide financial assistance to individuals and families. This assistance, known as entitlements, are primarily set up for low-income households, theelderly and the disabled. Each entitlement has eligibility requirements. There are also programs administered through state governments that can help with health-care related needs. Government Assistance Programs include: U.S. Department of Health & Human Services Information on public assistance and food stamps. Check phonebook for your local office. www.hhs.gov. U.S. Administration on Aging Benefits for older adults. 329.991.2735 www.eldercare.gov ([employer] Garbage Man finds resources in your community). Social Security Administration 566-620-6615 www.ssa.gov Centers for Medicare & Medicaid Services 636-431-7427 www.cms.gov National Cancer Marsteller www.cancer.gov Pharmaceutical Patient Assistance Programs Programs and services offered differ among drug manufacturers but may include: Help with insurance reimbursement. Referrals to co pay relief programs Help with the application process Discounted or free medications for patients who do not qualify for other assistance Partnership for Prescription Assistance (PPA) 962-8-YNW-NOW (775-764-2376) www.pparx.org Insurance Coverage www.getcovered[place].org To see if the drug company that makes your medication has a patient assistance program, check its web site, ask your doctor or check with the PPA. [facility] has a list of pharmaceutical programs and other resources for financial assistance. People with cancer often need assistance with expenses like transportation, home care and child specialist. A number of nonprofit organizations have useful programs or referral information that may be able to help. Cancer Organizations CancerCare 574-147-FVHD(6238) www.cancercare.org [employer] [employer] 053-VQE-1228 www.cancer.org Leukemia & Lymphoma Society 700-631-0912 www.lls.org Lung Cancer [place] www.lungcanceralliance.org Lymphoma Research Foundation 536-580-1143 www.lymphoma.org National Marrow Donor Program 433-413-2396 www.marrow.org National Ovarian Cancer Coalition www.ovarian.org Pancreatic Cancer Action Network www.pancan.org Patient Advocate Colorectal Careline 200-072-6776 www.colorectalcareline.org Sarcoma [place] 227-960-3960 www.sarcomaalliance.org General Organizations [employer] www.ZAO Begun.org Community Organizations Check phonebook under social service agencies Helene-based Organizations Includes RunSignUp.com, [employer]Tap, [employer] and others. Check phonebook for listings. Lazarex Cancer Foundation (Clinical Trial information and support) www.lazarex.org Leukemia Research Foundation www.leukemia-research.org Bladder Cancer Advocacy Network www.bcan.org Support for People with Oral Head and Neck Cancer (SPOHNC) www.spohnc.org [employer] Breast Cancer Organization 683-015-9068 ww5.komen.org/BreastCancer/1877GOKORIC.html
--- OUTSIDE RECORDS SUMMARY | 2025-05-11 16:07 | XMS_ITS | Clinical Summary ---
Author Organization [facility] Address [address] [place] [address] Care Team Providers Care Outside Deliverer Name Role Phone Crystal Branham INTERNATIONAL EXCHANGE COORDINATOR-ELECTRICAL TECH Primary Care Provider Source Comments [facility],non-owned Affiliates and Associated Physician Practices is amultiple site organization consisting of ambulatory clinics and hospital sitesin [place], [place], [place] and [place]. This disclosure is being madepursuant to the Care Everywhere program and may not contain all information available regarding this patient. Last updated 18.[facility] Allergies Active Allergy Reactions Criticality Noted Date [...] from 03/16/2022:Stage IIA(cT2, cN1(f), cM0, G2, ER+, NJ+, HER2: Equivocal) - Signed by Stefany Mednoza MD on 03/19/2022 Pathologic stage from 10/16/2022:No Stage Recommended(ypT2, pN2a, cM0, G2, ER+, NJ+, HER2-) - Signed by Stefany Mendoza MD on 11/11/2022 Encounters Date Type Department Care Team Description 05/10/2025 Orders Only [facility] - General Surgery [address] [place] [address] Jessica Colbert, RN Malignant neoplasm of upper-outer quadrant of left breast in female, estrogen receptor positive (HCC) ; Mass of left chest wall 05/04/2025 Refill [facility] - [address], [place] [address] Ngoc Orr, PACK MULE WORKER REFILL from Last 3 Months Family History [...] CDT Hospital Encounter [facility] [address] [place] [address] Stefany Mendoza MD [address] [facility] [address] [place] [address] 05/14/2025 10:00 AM CDT Office Visit [facility] - General Surgery [address] [place] [phone] Stefany Mendoza MD [address] [facility] [address] [place] [address] Health Maintenance Due Date Last [...] last dose Medical Devices Implanted Type Area Senior Mobile Solutions Architect Device Identifier Shelf Expiration Date Model / Serial / Lot Port Implinfn Powerport Isp Mri Argd - [id number] Implanted:Qty: 1 on 04/10/2022 by Stefany Mendoza MD at [facility] N/A: Chest Bard Peripheral Vascular 07/08/2022 [id number] / [id number] / [id number] Mtrx Tissue Aldrm Algrf Prfr Implanted:Qty: 1 on 10/16/2022 by Elsa Gardner MD at [facility] Right: Breast Lifecell Kate 05/08/2024 [id number] / / [id number] Mtrx Tissue Aldrm Algrf Prfr Implanted:Qty: 1 on 10/16/2022 by Elsa Gardner MD at [facility] Left: Breast Lif[employer]ell Kate 05/08/2024 [id number] / / [id number] Natrelle 133s Tissue Explander Implanted:Qty: 1 on 10/16/2022 by Elsa Gardner MD at [facility] Right: Breast 03/13/2027 133S-MX-12- T / [id number] / Natrelle 133s Tissue Senior Qa Tester Implanted:Qty: 1 on 10/16/2022 by Elsa Gardner MD at [facility] Left: Breast 06/10/2027 133S-MX-12- T / [id number] / Natrelle Inspira Cohesive Breast Implant Smooth Round Full Profile Implanted:Qty: 1 on 08/20/2023 by Elsa Gardner MD at [facility] Left: Breast [employer] 07/29/2026 [facility]-365 / [id number] / Natrelle Inspira Cohesive Breast Implant Smooth Round Full Profile Implanted:Qty: 1 on 08/20/2023 by Elsa Gardner MD at [facility] Right: Breast 12/06/2026 [facility]-345 / [id number] / Explanted Type Area Senior Mobile Solutions Architect Device Identifier Shelf Expiration Date Model / Serial / Lot Kit Fld Trnsf 122cm Natrelle Unv 2w Ck Explanted:Qty: 1 on 08/20/2023 by Elsa Gardner MD at [facility] Breast [employer] [id number] / / Procedures Procedure Name Priority Date/Time Associated Diagnosis Comments ENDOSCOPY, COLON, DIAGNOSTIC Routine 11/29/2024 11:41 AM CDT MAMMO BILAT DIAGNOSTIC W SHASHI Routine 09/25/2024 11:38 AM COUNTER HOP S/P breast reconstruction, bilateral History of left [...] bowel preparation was evaluated using the BBPS ([place] Bowel Preparation Scale) with scores of: Right [...] insepction, Endocuff distal attachment was used. GI-Genius (3[employer]) was used to assist in polyp detection. [...] Residual hemorrhoidal skin tags CPT copyright 2021 [employer]. All rights reserved. The codes documented in this report are preliminary and upon sales route driver review may be revised to meet current compliance requirements. Rikki Pack MD 11/29/2024 1:28:13 PM This report has been signed electronically. Note Initiated On: 11/29/2024 11:41 AM Number of Addenda: 0 [facility] [address] [place] [address] [facility] 11/29/2024 11:4 1 AM CDT us Rikki Pack MD GI PROCEDURE ORDERABLES Edited R esult - Final [facility] * Mammo Bilat Diagnostic W Shashi (09/25/2024 11:38 AM COUNTER HOP) Anatomical Region Laterality Modality Breast Bilateral Mammography 09/25/2024 10:3 5 AM COUNTER HOP Impressions 09/25/2024 12:43 PM COUNTER HOP IMPRESSION: 1. No bilateral mammographic or lateral [...] 09/25/2024 12:43 PM Narrative 09/25/2024 12:43 PM COUNTER HOP EXAMINATIONS: 1. BILATERAL DIGITAL DIAGNOSTIC MAMMOGRAM AND BREAST TOMOSYNTHESIS AND 2. LIMITED BILATERAL BREAST ULTRASOUND (COMBINED REPORT) LOCATION: [facility] EXAM DATE: 09/25/2024 HISTORY: This is [...] RISK TED (04/06/2024 11:42 AM CDT) Pathologist [facility] High Risk Human Papilloma Result Detected( A) Not detected 04/13/2024 7:20 AM CDT [facility] High Risk Human Papilloma Interp 04/13/2024 7:20 AM CDT [facility] Comment:High Risk Human Blair lloma Virus - Detected Pathology/Cytolo gy MISCELLANEOUS SAMPLES / Unknown 04/06/2024 11:42 AM CDT 04/07/2024 12:17 PM CDT Narrative [facility] - 04/13/2024 7:20 AM CDT [...] O RDERABLES Final Result Performing Organization Address City/State/[facility] Co de Phone Number [facility] [address] [phone] * (ABNORMAL) LIPID PROFILE (04/08/2022 3:24 PM CDT) [facility] Cholesterol Total 198 <200 mg/dL 04/08/2022 4:25 PM CDT [facility] HDL 66 >40 mg/dL 04/08/2022 4:25 PM CDT [facility] Comment: ATP III Classification of HDL Cholesterol: <40 mg/dL: Considered a major risk factor. >60 mg/dL: Considered a negative risk factor. LDL Calculated 107(H) <100 mg/dL 04/08/2022 4:25 PM [facility] Comment: ATP III Classification of LDL Cholesterol: <100 mg/dL: Optimal 100 - 129 mg/dL: Near Optimal/Above Optimal 130 - 159 mg/dL: Borderline High 160 - 189 mg/dL: High >190 mg/dL: Very High Triglycerides 123 <150 mg/dL 04/08/2022 4:25 PM T [facility] Comment: ATP III Classification of Triglycerides: <150 mg/dL: Normal 150 - 199 mg/dL: Borderline High 200 - 400 mg/dL: High >500 mg/dL: Very High Blood BLOOD SPECIMEN / Unknown Lab Venipuncture / Unknown 04/08/2022 3:24 PM CDT 04/08/2022 3:55 PM CDT Crystal Branham INTERNATIONAL EXCHANGE COORDINATOR-ELECTRICAL TECH LAB - CHEMISTRY ORDERAB LES Final Result [facility] [address] [place] [address], [facility] [phone] * (ABNORMAL) COMPREHENSIVE METABOLIC PANEL (04/01/2022 12:22 PM CDT) BUN 22 7 - 26 mg/dL 04/01/2022 1:56 PM [facility] Creatinine 0.66 0.56 - 0.96 mg/dL 04/01/2022 1:56 PM [facility] Sodium 139 136 - 145 mmol/L 04/01/2022 1:56 PM [facility] Potassium 4.1 3.5 - 4.5 mmol/L 04/01/2022 1:56 PM [facility] Chloride 104 98 - 107 mmol/L 04/01/2022 1:56 PM [facility] CO2 25 22 - 29 mmol/L 04/01/2022 1:56 PM [facility] Glucose 88 70 - 115 mg/dL 04/01/2022 1:56 PM [facility] Calcium 10.1 8.4 - 10.2 mg/dL 04/01/2022 1:56 PM [facility] Protein Total 7.5 6.0 - 8.3 g/dL 04/01/2022 1:56 PM [facility] Albumin 4.6 3.4 - 5.0 g/dL 04/01/2022 1:56 PM [facility] Bilirubin Total 0.8 0.2 - 1.2 mg/dL 04/01/2022 1:56 PM [facility] Alkaline Phosphatase 47 40 - 150 U/L 04/01/2022 1:56 PM [facility] ALT 14 5 - 55 U/L 04/01/2022 1:56 PM [facility] AST 21 5 - 34 U/L 04/01/2022 1:56 PM [facility] Anion Gap 14 8 - 18 04/01/2022 1:56 PM [facility] BUN/Creatinine Ratio 33(H) 7 - 23 04/01/2022 1:56 PM [facility] Osmolality Calculated 291 270 - 300 mOsm/kg 04/01/2022 1:56 PM [facility] Albumin/Globulin Ratio 1.6 1.1 - 2.3 04/01/2022 1:56 PM [facility] eGFR by CKD-EPI >90 >=90 mL/min/1.7 3 m2 04/01/2022 1:56 PM [facility] Blood BLOOD SPECIMEN / Unknown Lab Venipuncture / Unknown 04/01/2022 12:22 PM CDT 04/01/2022 1:24 PM [facility] us Elsa Gardner MD LAB - CHEMISTRY ORDERABLES Cathryn l Result [facility] [address] [place] [address], [facility] [phone] from Last 3 Months or Most Recently Relevant to Health Maintenance Insurance BRENDA BRENDA Advance Directives * Full Code (Latest Code Status on File) Date Activated Date Inactivated Comments 10/16/2022 12:52 PM 10/17/2022 11:43 AM Care Teams Outside Deliverer Relationship Specialty Start Date End Date Crystal Branham, BALA-ELECTRICAL TECH [address] [place] [address] PCP - General Nurse Practitioner 02/02/24
--- OUTSIDE RECORDS SUMMARY | 2025-05-11 16:07 | XMS_ITS | Encounter Summary ---
Author Organization [facility] Address [address] [place] [address] Phone Care Team Providers Care Bread Slicer Machine Name Role Phone Maikol Branhamy BALA, SHERMAN Primary Care Provider + Jose Manuel Hannon MD Unavailable Reason for Visit * Reason Comments Medication Refill Encounter Details Date Type Department Care Team (Late st Contact Info) Description 10/01/2022 Refill [facility] [address] [address] Jose Manuel Hannon MD [facility] [address] [address] Medication Refill Social History Tobacco [...] Coronavirus/COVID-19? No / Unsure 09/18/2022 11:48 AM WARRANT SERVER documented as of this encounter Miscellaneous Notes * Telephone Encounter - Shey Tucker - 2022 8:29 AM CST Please refill if appropriate. ANT SERVER documented in this encounter Plan of Treatment Upcoming Encounters Date Type Department Care Team (Late st Contact Info) Description 06/14/2025 8:30 AM WARRANT SERVER Office Visit [facility] [address] [phone] Jose Manuel Hannon MD [address] [address] 06/14/2025 8:45 AM WARRANT SERVER Clinical Support [facility] [address] [phone] Nurse, Cc [facility] documented as of this encounter Visit Diagnoses Not on filedocumented in this encounter Additional Health Concerns Infection Onset Date Last Indicated Resolved Time C. difficile Rule-Out 01/07/2024 01/10/20242023 2:04 PM CDT documented as of this encounter Care Teams Bread Slicer Machine Relationship Specialty Start Date End Date Crystal Branham APRN, TECHNOLOGY ENGINEER [address] [place] [address] PCP - General Family Medicine 03/24/22 Jose Manuel Hannon MD [address] [place] [phone] Consulting Physician Oncology 03/24/22 documented as of this encounter
--- OUTSIDE RECORDS SUMMARY | 2025-05-11 16:07 | XMS_ITS | Encounter Summary ---
Author Organization [facility] Address [address] [place] [address] Phone Care Team Providers Care Substance Abuse Rn Name Role Phone Crystal Branham APRN, CNP Primary Care Provider + Jose Manuel Hannon MD Unavailable [phone] Encounter Details Date Type Department Care Team (Late st Contact Info) Description 08/21/2022 Telephone [facility] [address] [address] Jose Manuel Hannon MD [facility] [address] [address] Social History Tobacco Use Types [...] Coronavirus/COVID-19? No / Unsure 08/21/2022 11:27 AM VAN CDL DRIVER documented as of this encounter Miscellaneous Notes * Telephone Encounter - Jose Manuel Hannon MD - 08/21/2022 2:18 PM CST done CDL DRIVER * Telephone Encounter - VianneymilkaalondraErum - 08/21/2022 2:09 PM CST PT STOPPED BY CHECKOUT AND MENTIONED ABOUT A MAMMOGRAM AND ULTRASOUND THAT SHE WANTS TO HAVE DONE AT [facility].. PLEASE PLACE ORDERS AND I WILL FAX OVER TO [facility]. CDL DRIVER documented in this encounter Plan of Treatment Upcoming Encounters Date Type Department Care Team (Late st Contact Info) Description 06/14/2025 8:30 AM VAN CDL DRIVER Office Visit [facility] [address] [address] Jose Manuel Hannon MD [address] [facility] [address] [address] 06/14/2025 8:45 AM VAN CDL DRIVER Clinical Support [facility] [address] [address] Nurse, Cc [facility] documented as of this encounter Visit Diagnoses Not on filedocumented in this encounter Additional Health Concerns Infection Onset Date Last Indicated Resolved Time C. difficile Rule-Out 01/07/2024 01/10/20242023 2:04 PM CDT documented as of this encounter Care Teams Substance Abuse Rn Relationship Specialty Start Date End Date Crystal Branham, INSIGHT DIRECTOR, DECK HAND [address] [place] [address] PCP - General Family Medicine 03/24/22 Jose Manuel Hannon MD [address] [place] [phone] Consulting Physician Oncology 03/24/22 documented as of this encounter
--- OUTSIDE RECORDS SUMMARY | 2025-05-11 16:07 | XMS_ITS | Encounter Summary ---
Author Organization [facility] Address [address] [facility] [place] [address] Care Team Providers Care Regional Controller Name Role Phone Crystal Branham PARTS CONTROL CLERK-GRINDER OPERATOR Primary Care Provider Reason for Referral * Radiology Services (Routine) - Authorized Specialty Diagnoses / Procedures Referred By Arlin t Referred To Contact Mammography Diagnoses Malignant neoplasm of upper-outer quadrant of left breast in female, estrogen receptor positive (HCC) Mass of left chest wall Procedures US BREAST LEFT LTD (Diagnostic , most commonly ordered) Stefany Mendoza MD [address] [facility] [address] [place] [address] Phone: tel: fax: [facility] [address] [place] [address] Phone: tel: fax: Referral ID Status Reason Start Date Expiration Date V isits Requested Visits Authorized [id number] Authorized 05/10/2025 05/10/2026 1 1 Encounter Details Date Type Department Care Team (Late st Contact Info) Description 05/10/2025 Orders Only [facility] - General Surgery [address] [place] [phone] Jessica Colbert RN Malignant neoplasm of upper-outer [...] Description 05/14/2025 9:30 AM CDT Hospital Encounter [facility] [address] [place] [address] Stefany Mendoza MD [address] [facility] [address] [place] [phone] 05/14/2025 10:00 AM CDT Office Visit [facility] - General Surgery [address] [place] [phone] Stefany Mendoza MD [address] [facility] [address] [place] [address] Scheduled Orders Name Type Priority [...] wall documented in this encounter Care Teams Regional Controller Relationship Specialty Start Date End Date Crystal Branham, BALA-GRINDER OPERATOR [address] [place] [address] PCP - General Nurse Practitioner 02/02/24 documented as of this encounter
--- OUTSIDE RECORDS SUMMARY | 2025-05-11 16:07 | XMS_ITS | Encounter Summary ---
Author Organization [facility] Address [address] [place] [address] Phone Care Team Providers Care Banquet Manager Name Role Phone Maikol Branhamy BALA, SHERMAN Primary Care Provider + Jose Manuel Hannon MD Unavailable Reason for Visit * Reason Comments Medication Refill Encounter Details Date Type Department Care Team (Late st Contact Info) Description 09/03/2023 Refill [facility] [address] [address] Jose Manuel Hannon MD [facility] [address] [address] Medication Refill Social History Tobacco [...] 1:36 PM CST Please refill if appropriate. RY FINISHER documented in this encounter Plan of Treatment Upcoming Encounters Date Type Department Care Team (Late st Contact Info) Description 06/14/2025 8:30 AM PASTRY FINISHER Office Visit [facility] [address] [address] Jose Manuel Hannon MD [address] [facility] [address] [place] [address] 06/14/2025 8:45 AM PASTRY FINISHER Clinical Support [facility] [address] [address] Nurse, Cc [facility] documented as of this encounter Visit Diagnoses Not on filedocumented in this encounter Additional Health Concerns Infection Onset Date Last Indicated Resolved Time C. difficile Rule-Out 01/07/2024 01/10/20242023 2:04 PM CDT documented as of this encounter Care Teams Banquet Manager Relationship Specialty Start Date End Date Crystal Branham APRN, NANOFABRICATION SPECIALIST [address] [place] [address] PCP - General Family Medicine 03/24/22 Jose Manuel Hannon MD [address] [place] [phone] Consulting Physician Oncology 03/24/22 documented as of this encounter
--- OUTSIDE RECORDS SUMMARY | 2025-05-11 16:07 | XMS_ITS | Encounter Summary ---
Author Organization [facility] Address [address] [place] [address] Phone Care Team Providers Care Hat And Cap Sewer Name Role Phone Maikol Branhamy BALA, SHERMAN Primary Care Provider + Jose Manuel Hannon MD Unavailable [phone] Reason for Visit * Reason Comments Medication Refill Encounter Details Date Type Department Care Team (Late st Contact Info) Description 05/17/2023 Refill [facility] [address] [address] Jose Manuel Hannon MD [facility] [address] [address] Medication Refill Social History Tobacco [...] st Contact Info) Description 06/14/2025 8:30 AM MARINE ELECTRONICS TECHNICIAN Office Visit [facility] [address] [address] Jose Manuel Hannon MD [address] [phone] 06/14/2025 8:45 AM MARINE ELECTRONICS TECHNICIAN Clinical Support [facility] [address] [address] Nurse, Cc [facility] documented as of this encounter Visit Diagnoses Not on filedocumented in this encounter Additional Health Concerns Infection Onset Date Last Indicated Resolved Time C. difficile Rule-Out 01/07/2024 01/10/20242023 2:04 PM CDT documented as of this encounter Care Teams Hat And Cap Sewer Relationship Specialty Start Date End Date Crystal Branham APRN, FILL MANAGER [address] [place] [address] PCP - General Family Medicine 03/24/22 Jose Manuel Hannon MD [address] [place] [phone] Consulting Physician Oncology 03/24/22 documented as of this encounter
--- OUTSIDE RECORDS SUMMARY | 2025-05-11 16:07 | XMS_ITS | Clinical Summary ---
Author Organization [facility] Address [address] [place] [phone] Care Team Providers Care Slabber Light Name Role Phone Josie Singh MD Unavailable [phone] Social History Tobacco Use Types Packs/Day Years [...] of Treatment Not on file Care Teams Slabber Light Relationship Specialty Start Date End Date Josie Singh MD Obstetrics and Gynecology 02/24/22
[2025-05-11] MEDS: HYDROcodone/acetaminophen (*CRX) 5-325 MG TABLET 1 TAB PO (16:34)
--- NOTE | 2025-05-11 16:40 | ED_ITS ---
HPI - Extremity Injury (Lower) General Chief Complaint: Extremity Injury, Lower Stated Complaint: left ankle injury Time Seen by Provider: 05/11/25 15:56 History of Present Illness HPI Narrative: Patient is a 44-year-old female who presents ER with left-sided ankle pain. Lateral malleolus with swelling and tenderness. She was walking down a step into her garage when she rolled her ankle. She did not strike her head or suffer any other injury. No numbness or tingling to the foot. She has not been able to bear weight since this occurred. Related Data Home Medications ?Medication ?Instructions ?Recorded ?Confirmed ?Last Taken ?Type No Home Medications 02/06/22 02/06/22 U nknown History Allergies Allergy/AdvReac Type Severity Reaction Status Date / Time iodine Allergy Severe rash Verified 05/11/25 16:08 povidone-iodine Allergy Mild Unknown Verified 05/11/25 16:08 naproxen Allergy Unknown Unknown Verified 05/11/25 16:08 chlorhexidine Allergy Unknown Verified 05/11/25 16:08 Review of Systems Constitutional: Constitutional: Reports no additional constitutional complain ts Musculoskeletal: Musculoskeletal: Reports no additional musculoskeletal complaints Neurologic: Reports system reviewed and no additional complaints, except as documented [facility] Past Medical History Medical History (Updated 05/11/25 @ 18:07 by Sal Shrestha MD) History of breast cancer Surgical History Surgical History (System 02/10/22 @ 10:45 by Violeta Hastings) History of orthopedic surgery Delivery by section History of endometrial ablation History of tubal ligation Family History Family History Grandparent Diabetes mellitus Social History Social History (System 02/10/22 @ 10:45 by Violeta Hastings) Smoking packs per day: 2 Smoking cigarettes per day: 40.0 Smoking status: Never smoker Tobacco type: cigarettes Second hand tobacco smoke exposure: No Smoking end date: 08/09/04 Alcohol intake: current Alcohol use details: socially Substance use: never Substance use type: does not use Living arrangements: with family Occupation/Education: occupation 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 HEAD: Normocephalic, atraumatic. CHEST: Clear to auscultation. No respiratory distress. HEART: Regular rate and rhythm. Normal peripheral pulses. EXTREMITIES: Left lower extremity exam with swelling lateral malleolus with pain at tip of lateral malleolus, no medial malleolar tenderness. Range of motion preserved passively. Neurovascular intact. He SKIN: Warm, dry, no rash. NEURO: Alert and oriented x3. PSYCH: Normal mood and affect. Course Course Emergency Course: Spoke with ortho, will splint, give crutches, and d/c. Vital Signs Vital signs: Vital Signs Temperature 98.4 F 05/11/25 14:09 Pulse Rate 89 05/11/25 14:09 Respiratory Rate 18 05/11/25 14:09 Blood Pressure 145/93 H 05/11/25 14:09 Pulse Oximetry 98 05/11/25 14:09 Oxygen Delivery Room Air 05/11/25 14:09 Temperature 98.4 F 05/11/25 15:54 Pulse Rate 89 05/11/25 15:54 Respiratory Rate 18 05/11/25 15:54 Blood Pressure 145/93 H 05/11/25 15:54 Pulse Oximetry 98 05/11/25 15:54 Oxygen Delivery Room Air 05/11/25 15:54 MDM - Extremity Injury (Lower) Imaging Data Radiologist's impression: ITS Impressions Ankle X-Ray 05/11/25 16:38 IMPRESSION: 1. Minimal distraction of a small avulsion fracture fragment at the distal tip at the lateral malleolus. Discharge Plan Discharge Clinical Impression: Avulsion fracture of lateral malleolus Patient Disposition: Home Condition: Stable Instructions: Ankle Fracture (ED) Additional Instructions: Return to the ER if you suffer new injury, have new numbness or discoloration of the foot, or have additional concerns. Elevate the leg when at rest. Take tylenol or ibuprofen for pain. Patient Language: Czech Prescriptions: No Action No Home Medications cyclobenzaprine 10 mg tablet 10 mg PO TID PRN (Reason: muscle spasm) Qty: 10 0RF Follow-up/Referrals: Carrol,PAVITHRA Rojas [Primary Care Provider] Juan Lyons MD [Physician, Orthopedics] - 1 Week
[2025-05-11 18:13] VITALS: BP 134/89; PULSE 84; RESP 15; O2SAT 99
== END 2025-05-11 18:14 | disposition home or self-care (01) ==
PROVIDERS: Emergency Provider Emergency Medicine; PCP Registered Nurse
DX: S82.62XA Displaced fracture of lateral malleolus of left fibula, initial encounter for closed fracture (principal); Z85.3 Personal history of malignant neoplasm of breast; Z87.891 Personal history of nicotine dependence; X50.9XXA Other and unspecified overexertion or strenuous movements or postures, initial encounter
CPT/HCPCS: 29515; 73610; 99284; A9270

== ENCOUNTER 2025-06-20 09:51 | Emergency (ER) | payer BC, SELFPAY ==
[2025-06-20 09:59] VITALS: BP 158/98; PULSE 93; RESP 18; TEMP 36.4; O2SAT 99
--- NOTE | 2025-06-20 10:29 | ED_ITS ---
HPI - URI/Sore Throat General Chief Complaint: Upper Respiratory Infection Stated Complaint: Cough Time Seen by Provider: 06/20/25 10:15 Source: patient and RN notes reviewed Mode of arrival: ambulatory Limitations: no limitations History of Present Illness HPI Narrative: 44-year-old female patient presents today complaining of cough and chest congestion that started this morning. Denies any additional symptoms to include postnasal drip, sore throat, congestion rhinorrhea, fever, shortness of breath. She has tried no OTC treatment prior to arrival. No history of asthma or COPD. States son was sick with viral symptoms last week. Related Data Home Medications ?Medication ?Instructions ?Recorded ?Confirmed ?Last Taken ?Type amlodipine 5 mg tablet mg 06/20/25 Unknown History anastrozole 1 mg tablet mg 06/20/25 Unknown History cyanocobalamin (vitamin B-12) mcg 06/20/25 Unknown Hi story 1,000 mcg/mL injection solution losartan 50 mg tablet mg 06/20/25 Unknown History multivitamin (Daily Value tablet) 1 tablet PO DAILY Unknown History pantoprazole 40 mg tablet,delayed mg PO 06/20/25 Unkn own History release venlafaxine 75 mg capsule,extended mg PO 06/20/25 Unk nown History release 24 hr Allergies Allergy/AdvReac Type Severity Reaction Status Date / Time iodine Allergy Severe rash Verified 06/20/25 10:19 povidone-iodine Allergy Mild Unknown Verified 06/20/25 10:19 naproxen Allergy Unknown Heartburn Verified 06/20/25 10:19 chlorhexidine Allergy Rash Verified 06/20/25 10:19 PMFSH Past Medical History Medical History History of breast cancer Surgical History Surgical History History of orthopedic surgery Delivery by section History of endometrial ablation History of tubal ligation Family History Family History Grandparent Diabetes mellitus Mother Family history of thyroid disease Grandparent Family history of thyroid disease Family history of Parkinson's disease Family history of Alzheimer's disease Sibling Patient's sister is in good health Father Family history of type 2 diabetes mellitus Social History Social History (Reviewed 06/20/25 @ 10:30 by Velma Gordon, NUCLEAR EQUIPMENT SALES ENGINEER, SLIP COVER OPERATOR) Smoking packs per day: 2 Smoking cigarettes per day: 40.0 Tobacco type: cigarettes Second hand tobacco smoke exposure: No Smoking end date: 08/09/04 Alcohol intake: current Alcohol use details: socially Substance use: never Substance use type: does not use Living arrangements: with family Occupation/Education: occupation 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 Please see nursing chart for further information. There is no relevant family history pertinent to the presenting complaint Exam Narrative: GENERAL: Mildly ill-appearing, well-nourished, and in no acute distress. HEAD: Normocephalic, atraumatic. EYES: EOMI. No redness or drainage. Conjunctivae normal. ENT: Mucous membranes pink and moist. Nares clear. No rhinorrhea. TMs normal bilaterally. Throat normal. Uvula midline. NECK: Normal AROM. Supple. No lymphadenopathy. CHEST: No respiratory distress. Clear to auscultation. HEART: Regular rate and rhythm. No murmur appreciated. EXTREMITIES: Normal range of motion. No edema. SKIN: Warm, dry, no rash. Capillary refill normal. Normal skin turgor. NEURO: No focal deficits. Alert and oriented x3. Gait steady. PSYCH: Normal affect. No signs of depression or anxiety. Course Course Level of Care: Express Care Visit Vital Signs Vital signs: Vital Signs Temperature 97.5 F L 06/20/25 09:59 Pulse Rate 93 06/20/25 09:59 Respiratory Rate 18 06/20/25 09:59 Blood Pressure 158/98 H 06/20/25 09:59 Pulse Oximetry 99 06/20/25 09:59 Oxygen Delivery Room Air 06/20/25 09:59 Temperature 97.5 F L 06/20/25 09:59 Pulse Rate 93 06/20/25 09:59 Respiratory Rate 18 06/20/25 09:59 Blood Pressure 158/98 H 06/20/25 09:59 Pulse Oximetry 99 06/20/25 09:59 Oxygen Delivery Room Air 06/20/25 09:59 Reviewed MDM - URI/Sore Throat MDM Narrative Medical decision making narrative: 44-year-old female patient presents today complaining of cough and chest congestion that started this morning. Denies any additional symptoms to include postnasal drip, sore throat, congestion rhinorrhea, fever, shortness of breath. She has tried no OTC treatment prior to arrival. No history of asthma or COPD. States son was sick with viral symptoms last week. Upon exam, patient is mildly ill appearing. Lung auscultation normal. Symptoms likely viral in etiology. Discussed [id number] medication use and duration of illness. Prescription for Tessalon Perle sent to pharmacy. Anticipatory guidance given. Vital signs stable. ED precautions given. Differential Diagnosis Differential diagnosis: Likely upper respiratory infection, viral infection, bronchitis and other (Pneumonia) Critical Care Time Critical Care Time Critical Care Time: No Discharge Plan Discharge Clinical Impression: Viral infection Patient Disposition: Home Condition: Stable Instructions: Acute Cough (ED) Additional Instructions: Your symptoms are likely due to a viral illness, which is not treated with antibiotics. Virus symptoms can last for up to 7-10days. Take Tylenol or ibuprofen for pain or fever. Take the Tessalon Perles for cough if needed. Rest and stay hydrated. Follow up with your PCP in 7-10 days if symptoms are not improving. Go to the ER immediately if you develop shortness of breath, difficulty swallowing, or any other concerning symptoms. Patient Language: Tajik Prescriptions: New benzonatate 200 mg capsule 200 mg PO TID PRN (Reason: cough) Qty: 30 0RF No Action losartan 50 mg tablet anastrozole 1 mg tablet venlafaxine 75 mg capsule,extended release 24hr PO amlodipine 5 mg tablet pantoprazole 40 mg tablet,delayed release (DR/EC) PO cyanocobalamin (vitamin B-12) 1,000 mcg/mL solution multivitamin [Daily Value] Tablet 1 tablet PO DAILY Follow-up/Referrals: Carrol,Crystal DRAG DOWN [Primary Care Provider] Stand Alone Forms: Work/School Release IP Time of Disposition: 10:33
== END 2025-06-20 10:43 | disposition home or self-care (01) ==
PROVIDERS: Emergency Provider Nurse Practitioner; PCP Registered Nurse
DX: B34.9 Viral infection, unspecified (principal); F17.210 Nicotine dependence, cigarettes, uncomplicated; Z79.899 Other long term (current) drug therapy; Z85.3 Personal history of malignant neoplasm of breast
CPT/HCPCS: 99213; G0463